=== PATIENT | female | born 1975 | race Caucasian/White ===

== ENCOUNTER 2019-07-31 07:42 | Emergency (ER) | payer OTHER, SELFPAY ==
--- NOTE | ~2019-07-31 | XR_ITS ---
XR chest 2V DATE: 07/31/2019 08:25 INDICATION: Elevated d-dimer. Shortness of breath. Back pain. TECHNIQUE: PA and lateral views COMPARISON: None FINDINGS: Normal heart size. No hilar or mediastinal enlargement. No pulmonary infiltrate or consolid ation, pleural effusion or pulmonary vascular congestion or pneumothorax. IMPRESSION: No active cardiopulmonary disease Reviewed, dictated and finalized at location A.
--- NOTE | ~2019-07-31 | CT_ITS ---
EXAMINATION: CTA chest PE protocol DATE: 07/31/2019 09:17 INDICATION: Shortness of breath, back pain. Elevated d-dimer. TECHNIQUE: Computed tomography angiography (CTA) of the chest was performed with 100 mL Omnipaque-350 intravenous contrast timed to evaluate the pulmonary arteries. Coronal maximum intensity projection 3D-reconstructions were created by the technologist. Automated exposure control and iterative reconst ruction technique were employed. Exam dose: 657.32 mGy-cm total exam DLP. COMPARISON: None. FINDINGS: There is moderate contrast enhancement of the pulmonary arteries and no evidence of pulmona ry embolism. Normal heart size. Trace pericardial fluid. No pleural effusion. No thoracic aortic aneurysm or dissection. There is mild nonspecific bilateral hilar and mediastinal lymph node prominence, including the larges t, a 14 x 22.5 mm enlarged prevascular lymph node. Mild emphysematous changes. No pulmonary infiltrate or consolidation or pulmonary mass lesion is evident. Status post cholecystectomy. IMPRESSION: No evidence of pulmonary embolism Nonspecific mediastinal and hilar lymph node prominence Reviewed, dictated and finalized at Location A. Reviewed, dictated and finalized at location A.
[2019-07-31 07:49] VITALS: BP 160/105; PULSE 120; RESP 18; TEMP 36.8; O2SAT 100
--- NOTE | 2019-07-31 08:04 | ED.URI ---
HPI - URI/Sore Throat General Chief Complaint: Upper Respiratory Infection Stated Complaint: st, fever, cold symptoms Time Seen by Provider: 07/31/19 07:48 Source: patient Mode of arrival: ambulatory Limitations: no limitations History of Present Illness HPI Narrative: 43 yo female smoker who presents for evaluation of fever and cold symptoms. Patient states starting on Thursday she developed sinus congestion, cough, and sore throat. She reports she has mild cough with sob and left upper back pain. She had a fever prior to coming to ER of 102, and she took excedrin and hydrocodone. She denies sick contacts. She has psoriatic arthritis but she denies taking immunosuppresants. MD elicited complaint: fever, cough, sore throat, rhinorrhea and nasal congestion Onset (ago): day(s) (2) Consistency: progressively worsening Associated symptoms: fever, chills, rhinorrhea, nasal congestion, sore throat, cough and shortness of breath Treatments prior to arrival: aspirin (excedrin) Related Data Home Medications Medication Instructions Recorded Confirmed atorvastatin 40 mg PO DAILY 03/20/19 03/20/19 baclofen 20 mg PO QID 03/20/19 03/20/19 citalopram 40 mg PO DAILY 03/20/19 03/20/19 estradiol 1 mg PO 3XW 03/20/19 03/20/19 furosemide 40 mg PO DAILY PRN 03/20/19 03/20/19 gabapentin 900 mg PO HS 03/20/19 03/20/19 hydrocodone-acetaminophen 1 tablet PO Q4H PRN 03/20/19 03/20/19 meloxicam 15 mg PO DAILY 03/20/19 03/20/19 quetiapine [Seroquel] 200 mg PO HS 03/20/19 03/20/19 Allergies Allergy/AdvReac Type Severity Reaction Status Date / Time doxycycline Allergy Intermediate Redness of Verified 07/31/19 07:52 Skin sumatriptan Allergy Intermediate VASCULAR Verified 07/31/19 07:52 REACTION Review of Systems Review of Systems: All systems reviewed & are unremarkable except as noted in HPI and below Constitutional: Constitutional: Reports fever(s) ENT: Reports nasal congestion and Reports sore throat Cardiovascular: Cardiovascular: Denies chest pain and Denies rapid heart rate Respiratory: Respiratory: Reports chest congestion, Reports cough and Reports dyspnea Gastrointestinal: Gastrointestinal: Denies abdominal pain and Denies nausea Musculoskeletal: Musculoskeletal: Reports back pain PMFSH Past Medical History Medical History (Updated 07/31/19 @ 10:23 by Danisha Jade MD) Depression H/O pelvic mass Psoriatic arthritis Surgical History Surgical History S/P laparoscopic surgery Social History Social History (Updated 07/31/19 @ 08:06 by Danisha Jade MD) Smoking packs per day: 1 Smoking cigarettes per day: 20.0 Smoking status: Current every day smoker Gender identity (if verbalized by the patient): Female Exam Narrative: Exam Narrative: GENERAL: Well-appearing, well-nourished, and in no acute distress. HEAD: Normocephalic, atraumatic EYES: PERRLA and EOMI, conjunctiva clear without discharge EARS: TM's clear bilaterally without erythema or dullness NOSE: Nares clear, no rhinorrhea or epistaxis NECK: Supple, without lymphadenopathy or mass RESPIRATORY: No respiratory distress, Airway patent, Respirations non-labored, Clear to auscultation without rales, rhonchi or wheeze HEART: Regular rate and rhythm. No murmur heard. Normal peripheral pulses. ABDOMEN: Soft, nontender, nondistended, normal active bowel sounds. No masses. No rebound or guarding, No organomegaly. EXTREMITIES: No edema, normal strength with full range of motion. SKIN: Warm, dry, normal color without rash NEURO: Alert and oriented x3. CN 2-12 grossly intact. No focal deficits. PSYCH: Normal mood and affect. HENMT: Ears: external ears normal and TM's normal bilaterally Mouth: Yes moist mucous membranes Throat: uvula midline and posterior oropharynx abnormal erythema Neck: Neck: no lymphadenopathy Course Reevaluation(s) Reevaluation #1: I Discussed with kena
[2019-07-31] MEDS: KETOROLAC 30 MG/ML VIAL (*BKC) IV PUSH (08:13)
[2019-07-31 08:15] LABS: Basophils Percent Auto 0.5 % (0.2-1.2); Eosinophils Absolute Auto 0.2 K/mm3 (0-0.3); Eosinophils Percent Auto 2.3 % (0-4.4); Hematocrit 43.1 % (37.0-47.0); Hemoglobin 14.2 g/dL (12.0-15.0); Immature Granulocyte Absolute 0.02 K/mm3 (0.00-0.031); Immature Granulocyte Percent A 0.3 % (0-0.5); Lymphocytes Absolute Auto 1.61 K/mm3 (0.9-3.2); Lymphocytes Percent Auto 20.9 % (18.3-44.2); Mean Corpuscular HGB Conc 32.9 g/dl (32-36); Mean Corpuscular Hemoglobin 29.3 pg (26-34); Mean Corpuscular Volume 88.9 fl (80-100); Mean Platelet Volume 11.5 fl (7.4-10.4); Monocytes Absolute Auto 0.6 K/mm3 (0.1-0.6); Monocytes Percent Auto 7.7 % (2.6-8.5); Neutrophils Absolute Auto 5.3 K/mm3 (1.3-6.7); Neutrophils Percent Auto 68.3 % (45.5-73.1); Platelet Count Result 175 k/mm3 (150-375); Red Blood Count 4.85 M/mm3 (4.2-5.4); Red Cell Distribution Width 15.1 % (11.5-14.5); White Blood Count 7.7 K/mm3 (4.5-10.0)
[2019-07-31] MEDS: LACTATED RINGERS 1,000 ML 999 ML IV CONT (08:22)
[2019-07-31 08:27] LABS: INR 0.9; Prothrombin Time 12.1 Seconds (11.1-14.7)
[2019-07-31 08:27] LABS: Lactic Acid Reflex 1.1 mmol/L (0.7-2.1)
[2019-07-31 08:29] LABS: Alanine Aminotransferase 29 U/L (4-35); Albumin Level 4.4 g/dL (3.5-5.1); Alkaline Phosphatase 63 U/L (38-126); Aspartate Amino Transferase 34 U/L (14-36); Bilirubin,Total 0.4 mg/dL (0.2-1.3); Blood Urea Nitrogen 8 mg/dL (7-17); Carbon Dioxide 28 mmol/L (22-30); Chloride 100 mmol/L (98-107); Estimated CRCL calculation 85 ml/min; Estimated Glomerular Filt Rate > 60; Glucose 116 mg/dL (65-105); Partial Thromboplastin Time 31.2 SECONDS (22.3-36.8); Potassium 4.1 mmol/L (3.4-5.0); Sodium 136 mmol/L (137-145)
[2019-07-31 08:39] LABS: Troponin I < 0.012 ng/mL (0.000-0.034)
[2019-07-31 08:55] LABS: D Dimer 1.32 ug/mL (<0.48)
[2019-07-31 10:33] VITALS: BP 120/81; PULSE 79; RESP 18; O2SAT 100
== END 2019-07-31 10:36 | disposition home or self-care (01) ==
PROVIDERS: Emergency Provider General Practice
DX: J06.9 Acute upper respiratory infection, unspecified (principal); J43.9 Emphysema, unspecified; M54.5 Low back pain; F32.9 Major depressive disorder, single episode, unspecified; L40.50 Arthropathic psoriasis, unspecified; F17.210 Nicotine dependence, cigarettes, uncomplicated
CPT/HCPCS: 36415; 71046; 71275; 80053; 83605; 84484; 85025; 85380; 85610; 85730; 87081; 87804; 87880; 96361; 96374; 99284; J1885; J7120; Q9967

== ENCOUNTER 2020-07-18 10:05 | Outpatient (CLI) | payer OTHER, SELFPAY ==
[2020-07-18 10:19] LABS: Basophils Absolute Auto 0.07 K/mm3 (0.00-0.10); Basophils Percent Auto 0.7 % (0.0-1.0); Eosinophils Absolute Auto 0.32 K/mm3 (0.02-0.50); Eosinophils Percent Auto 3.3 % (1.0-6.0); Hematocrit 40.6 % (35.0-49.0); Immature Granulocyte Absolute 0.04 K/mm3 (0.00-0.00); Immature Granulocyte Percent A 0.4 % (0.0-0.0); Lymphocytes Absolute Auto 3.68 K/mm3 (1.10-4.50); Lymphocytes Percent Auto 38.4 % (18.0-42.0); Mean Corpuscular Hemoglobin 29.5 pg (27.0-31.0); Mean Corpuscular Volume 92.1 fL (78.0-102.0); Mean Platelet Volume 10.2 fl (9.2-11.8); Monocytes Absolute Auto 0.49 K/mm3 (0.10-0.90); Monocytes Percent Auto 5.1 % (2.0-11.0); Neutrophils Percent Auto 52.1 % (50.0-70.0); Platelet Count Result 293 K/mm3 (150-420); Red Blood Count 4.41 M/mm3 (4.20-5.40); Red Cell Distribution Width 15.8 % (11.6-14.4); White Blood Count 9.6 K/mm3 (4.8-10.8)
[2020-07-18 11:01] LABS: Alanine Aminotransferase 22 U/L (14-59); Albumin Level 3.5 g/dL (3.4-5.0); Alkaline Phosphatase 73 U/L (46-116); Anion Gap 6 mmol/L (8-16); Aspartate Amino Transferase 13 U/L (15-37); Bilirubin,Total 0.3 mg/dL (0.00-1.00); Blood Urea Nitrogen 13 mg/dL (7-18); CRP 1.4 mg/dL (0.0-0.9); Calcium 8.7 mg/dL (8.5-10.1); Carbon Dioxide 29 mmol/L (21-32); Chloride 103 mmol/L (98-108); Estimated Glomerular Filt Rate > 60; Glucose 106 mg/dL (70-99); Osmolality Calculated 286 mOsm/kg (285-295); Sodium 138 mmol/L (136-145)
[2020-07-18 11:15] LABS: Erythrocyte Sedimentation Rate 23 mm/hr (0-15)
== END 2020-07-18 10:06 | disposition home or self-care (01) ==
DX: M25.50 Pain in unspecified joint (principal)
CPT/HCPCS: 36415; 80053; 85025; 85652; 86140

== ENCOUNTER 2021-06-27 11:14 | Outpatient (RCR) | payer OTHER, SELFPAY ==
[2021-06-27 11:28] LABS: Basophils Absolute Auto 0.07 K/mm3 (0.00-0.10); Basophils Percent Auto 0.7 % (0.0-1.0); Eosinophils Absolute Auto 0.24 K/mm3 (0.02-0.50); Eosinophils Percent Auto 2.3 % (1.0-6.0); Hematocrit 41.6 % (35.0-49.0); Hemoglobin 13.5 g/dL (12.0-15.0); Immature Granulocyte Absolute 0.06 K/mm3 (0.00-0.00); Immature Granulocyte Percent A 0.6 % (0.0-0.0); Lymphocytes Absolute Auto 3.34 K/mm3 (1.10-4.50); Lymphocytes Percent Auto 32.1 % (18.0-42.0); Mean Corpuscular HGB Conc 32.5 g/dL (32.0-36.0); Mean Corpuscular Hemoglobin 30.1 pg (27.0-31.0); Mean Corpuscular Volume 92.9 fL (78.0-102.0); Mean Platelet Volume 10.5 fl (9.2-11.8); Monocytes Percent Auto 4.8 % (2.0-11.0); Neutrophils Absolute Auto 6.2 K/mm3 (1.7-7.2); Neutrophils Percent Auto 59.5 % (50.0-70.0); Platelet Count Result 332 K/mm3 (150-420); Red Blood Count 4.48 M/mm3 (4.20-5.40); Red Cell Distribution Width 17.7 % (11.6-14.4); White Blood Count 10.4 K/mm3 (4.8-10.8)
[2021-06-27 11:52] LABS: Alanine Aminotransferase 84 U/L (14-59); Albumin Level 3.8 g/dL (3.4-5.0); Alkaline Phosphatase 66 U/L (46-116); Anion Gap 9 mmol/L (8-16); Aspartate Amino Transferase 31 U/L (15-37); Bilirubin,Total 0.4 mg/dL (0.00-1.00); Blood Urea Nitrogen 10 mg/dL (7-18); Carbon Dioxide 30 mmol/L (21-32); Chloride 99 mmol/L (98-108); Estimated Glomerular Filt Rate > 60; Glucose 104 mg/dL (70-99); Osmolality Calculated 285 mOsm/kg (285-295); Potassium 4.7 mmol/L (3.5-5.1); Sodium 138 mmol/L (136-145); Total Protein 7.5 g/dL (6.4-8.2)
== END 2021-09-25 23:59 | disposition home or self-care (01) ==
LOC: CHSLAB 11:14
DX: Z79.899 Other long term (current) drug therapy (principal); L28.2 Other prurigo
CPT/HCPCS: 36415; 80053; 85025

== ENCOUNTER 2021-11-21 14:04 | Outpatient (RCR) | payer OTHER, SELFPAY ==
--- NOTE | 2021-11-21 15:03 | PTOPEVAL ---
Thank you for referring Sol Camp to [facility].? The patient is scheduled to be seen for therapy? ____x/week for ___ weeks. Please review, sign, date and return this plan of care INGRID. I agree with and certify that the following plan of care is medically necessary. Referring Physician Date Admitting Provider: Attending Provider: ERYN WOLFE Referring Provider: Catalina Newman *PT Outpatient Evaluation Start: 11/21/21 14:23 Freq: Status: Active Protocol: Document 11/21/21 14:23 [facility] (Rec: 11/21/21 15:02 [facility] [id number]) Therapy Assessment Status Assessment Status Assessment Status Evaluation Outpatient Past Medical History Cardiovascular History Hx Hypercholesterolemia Yes Gastrointestinal History Hx Cholecystectomy Yes Musculoskeletal History Hx Arthritis Yes: Psoriatic Hx Back Pain Yes Hx Fibromyalgia Yes HEENT History Hx Other HEENT Disorders Yes: Nasal sx Integumentary History Hx Psoriasis Yes Hx Other Skin Disorders Yes: Hidradenitis suppurativa Reproductive History Hx Post Menopausal Yes Hx Other Reproductive Disorders Yes: D&C Psychosocial History Hx Anxiety Yes Evaluation Information Problem Diagnosis fibromyalgia, R hip impingement Subjective Information patient reports she has Query Text:As Reported By Patient/ fibromyalgia, and micro Family herniations in her neck and back, and a potential compression fracture at T11. 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 she reports she has been having pain fro years , but reports it has continued to get worse for years. she reports she is on methotrexate for blisters on the skin. she reports she has the most pain with the hip and lower back currently. she reports she has increased pain with walking and standing for 5 minutes or so only. Prior Level of Function Comments Additional Prior Level of Function prior to 6 months ago or so, Comments patient reports she was better by a little bit, but reports she still was unable to stand or walk for more than 5
--- NOTE | 2021-11-21 15:14 | PTOPEVAL ---
Thank you for referring Sol Camp to [facility].? The patient is scheduled to be seen for therapy? ____x/week for ___ weeks. Please review, sign, date and return this plan of care INGRID. I agree with and certify that the following plan of care is medically necessary. Referring Physician Date Admitting Provider: Attending Provider: ERYN WOLFE Referring Provider: Catalina Newman *PT Outpatient Evaluation Start: 11/21/21 14:23 Freq: Status: Active Protocol: Document 11/21/21 14:23 [facility] (Rec: 11/21/21 15:02 [facility] [id number]) Therapy Assessment Status Assessment Status Assessment Status Evaluation Outpatient Past Medical History Cardiovascular History Hx Hypercholesterolemia Yes Gastrointestinal History Hx Cholecystectomy Yes Musculoskeletal History Hx Arthritis Yes: Psoriatic Hx Back Pain Yes Hx Fibromyalgia Yes HEENT History Hx Other HEENT Disorders Yes: Nasal sx Integumentary History Hx Psoriasis Yes Hx Other Skin Disorders Yes: Hidradenitis suppurativa Reproductive History Hx Post Menopausal Yes Hx Other Reproductive Disorders Yes: D&C Psychosocial History Hx Anxiety Yes Evaluation Information Problem Diagnosis fibromyalgia, R hip impingement Subjective Information patient reports she has Query Text:As Reported By Patient/ fibromyalgia, and micro Family herniations in her neck and back, and a potential compression fracture at T11. 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 she reports she has been having pain fro years , but reports it has continued to get worse for years. she reports she is on methotrexate for blisters on the skin. she reports she has the most pain with the hip and lower back currently. she reports she has increased pain with walking and standing for 5 minutes or so only. Prior Level of Function Comments Additional Prior Level of Function prior to 6 months ago or so, Comments patient reports she was better by a little bit, but reports she still was unable to stand or walk for more than 5
--- NOTE | 2022-01-13 16:25 | PCPTNOTE ---
Pt. attended at total of 5 treatment sessions. She has failed to return to the clinic and will be discharged from our care. Refer to last daily note for discharge status.
== END 2021-12-06 14:26 | disposition home or self-care (01) ==
LOC: CHSPT 14:04
DX: M25.851 Other specified joint disorders, right hip (principal)
CPT/HCPCS: 97110; 97112; 97162

== ENCOUNTER 2022-01-30 09:38 | Emergency (ER) | payer OTHER, SELFPAY ==
--- NOTE | ~2022-01-30 | XR_ITS ---
EXAMINATION: XR ankle RT min 3V INDICATION: Right ankle pain, initial encounter TECHNIQUE: Three views of the right ankle are obtained. COMPARISON: None available FINDINGS: There is an acute, traumatic, closed, oblique fracture of the distal fibula extending to th e level of the tibial plafond. Alignment is essentially anatomic. There is adjacent soft tissue swell ing. No additional fracture is identified. IMPRESSION: 1. Acute fracture of the distal fibula extending to the level of the tibial plafond. Reviewed, dictated and finalized at location B. IMPRESSION: 1. Acute fracture of the distal fibula extending to the level of the tibial crystal fond.
--- NOTE | ~2022-01-30 | XR_ITS ---
EXAMINATION: XR knee RT 3V DATE: 01/30/2022 10:21 INDICATION: Right knee pain, initial encounter TECHNIQUE: Three views of the right knee were obtained. COMPARISON: None. FINDINGS: There is an acute, traumatic, closed, oblique fracture involving the medial aspect of the p roximal fibula. Alignment is anatomic. Joint spaces are normal with no erosions. There is a small kn ee joint effusion. Soft tissues are unremarkable. IMPRESSION: 1. Acute nondisplaced fracture of the proximal fibula. Reviewed, dictated and finalized at location B.
[2022-01-30 09:50] VITALS: BP 179/87; PULSE 85; RESP 14; TEMP 36.2; O2SAT 100
--- NOTE | 2022-01-30 10:01 | ED.FALL ---
HPI - Fall General Chief Complaint: Fall Stated Complaint: R LEG INJURY S/P FALL Time Seen by Provider: 01/30/22 09:41 History of Present Illness HPI Narrative: 46-year-old female presents to the emergency room today for evaluation after a fall during the night. She was on her way back from the bathroom and caught her foot in a corner and caused her to fall. She reports having significant pain and swelling in her right ankle. She also has some pain in her right knee. No numbness or tingling. She took a hydrocodone at home this morning around 5:00 AM. Related Data Home Medications Medication Instructions Recorded Confirmed atorvastatin 40 mg tablet 40 mg PO DAILY 03/20/19 03/20/19 baclofen 20 mg tablet 20 mg PO QID 03/20/19 03/20/19 citalopram 40 mg tablet 40 mg PO DAILY 03/20/19 03/20/19 estradiol 1 mg tablet 1 mg PO 3XW 03/20/19 03/20/19 furosemide 40 mg tablet 40 mg PO DAILY PRN Edema 03/20/19 03/20/19 gabapentin 300 mg capsule 900 mg PO HS 03/20/19 03/20/19 hydrocodone 10 mg-acetaminophen 1 tablet PO Q4H PRN Pain 03/20/19 03/20/19 325 mg tablet meloxicam 15 mg tablet 15 mg PO DAILY 03/20/19 03/20/19 quetiapine 200 mg tablet (Seroquel) 200 mg PO HS 03/20/19 03/20/19 Allergies Allergy/AdvReac Type Severity Reaction Status Date / Time doxycycline Allergy Intermediate Redness of Verified 01/30/22 09:55 Skin sumatriptan Allergy Intermediate VASCULAR Verified 01/30/22 09:55 REACTION Review of Systems Review of Systems: CONSTITUTIONAL: Denies fever, chills, or sweats. EYES: Denies visual changes, redness, or discharge. ENT: Denies rhinorrhea, congestion, sore throat, or otalgia. CARDIOVASCULAR: Denies chest pain, palpitations, or edema. RESPIRATORY: Denies cough or dyspnea. GASTROINTESTINAL: Denies abdominal pain, nausea, vomiting, or diarrhea. GENITOURINARY: Denies dysuria or hematuria. SKIN: Denies rash or itching. MUSCULOSKELETAL: as per HPI NEUROLOGIC: Denies headache, numbness, dizziness, or weakness. PSYCHIATRIC: Denies anxiety or depression. PMFSH Past Medical History Medical History Depression H/O pelvic mass Psoriatic arthritis Surgical History Surgical History S/P laparoscopic surgery Social History Social History Smoking packs per day: 1 Smoking cigarettes per day: 20.0 Smoking status: Current every day smoker Gender identity (if verbalized by the patient): Female Exam Narrative: GENERAL: Well-appearing, well-nourished, and in no acute distress. HEAD: Normocephalic, atraumatic. EYES: PERRLA and EOMI. NECK: Supple. No adenopathy or masses. No carotid bruits or JVD CHEST: Clear to auscultation. No respiratory distress. No wheezes rales or rhonchi HEART: Regular rate and rhythm. No murmur heard. Normal peripheral pulses. ABDOMEN: Soft, nontender, nondistended, normal active bowel sounds. EXTREMITIES: right lateral ankle with moderate swelling, bruising and tenderness, no tenderness or swelling in the right knee joint, pt reports more of an aching to lateral knee, normal ROM of right knee, limited ROM of right ankle due to pain and swelling. SKIN: Warm, dry, no rash. NEURO: No focal deficits. Alert and oriented x3. PSYCH: Normal mood and affect. Course Course Emergency Course: [address] Acevedo, Ortho, recommending short leg splint and crutches. Pt can call office this afternoon to schedule follow up. Vital Signs Vital signs: Vital Signs Temperature 36.2 C L 01/30/22 09:50 Pulse Rate 85 01/30/22 09:50 Respiratory Rate 14 01/30/22 09:50 Blood Pressure 179/87 H 01/30/22 09:50 Pulse Oximetry 100 01/30/22 09:50 Temperature 36.2 C L 01/30/22 09:50 Pulse Rate 85 01/30/22 09:50 Respiratory Rate 14 01/30/22 09:50 Blood Pressure 179/87 H 01/30/22 09:5
[2022-01-30] MEDS: HYDROcodone/acetaminophen (*CRX) 10-325 MG TABLET 1 TAB PO (10:38)
--- NOTE | 2022-01-30 12:19 | PC.NURSE ---
Short leg posterior splint applied to right lower leg. Splint assessed by Nikki Zuniga NP
[2022-01-30 12:21] VITALS: BP 145/87; PULSE 78; RESP 16; O2SAT 98
== END 2022-01-30 12:23 | disposition home or self-care (01) ==
PROVIDERS: Emergency Provider Nurse Practitioner Family
DX: S82.831A Other fracture of upper and lower end of right fibula, initial encounter for closed fracture (principal); W01.0XXA Fall on same level from slipping, tripping and stumbling without subsequent striking against object, initial encounter; F32.A Depression, unspecified; L40.50 Arthropathic psoriasis, unspecified; F17.210 Nicotine dependence, cigarettes, uncomplicated; Z79.51 Long term (current) use of inhaled steroids
CPT/HCPCS: 29515; 73562; 73610; 99284; A9270

== ENCOUNTER 2022-02-04 00:52 | Day surgery (SDC) | payer OTHER, SELFPAY ==
[2022-01-31 11:38] VITALS: BMI 38.2
--- NOTE | 2022-01-31 11:48 | PC.NURSE ---
Report to the Outpatient Waiting Room, entrance under the green pavilion located off [facility], at time 1130 on date 02/04/22. OR Time: 1330. Time changes happen often and if your time is changed the preop area will call you the afternoon before. - You and your visitor will be asked to self-screen and do not enter if you have any COVID symptoms. - Only one visitor and NO children visitors are allowed at this time. - The patient visitor is requested to leave or wait in car when not with patient due to restrictions. - A mask is required within the hospital. Patients may have clear liquids (water, carbonated beverages, clear teas, apple juice) until 3 hours prior to surgery with a maximum of 20 ounces. - No food from midnight until time of surgery Take the following medications with a SIP of water the morning of surgery: CITALOPRAM, DULOXETINE, PAIN PILL IF NEEDED Medications to discontinue per physician: N/A Date to take last dose: N/A Please no make-up, nail mozambican, hairspray, perfume, deodorant, or body powder the day of surgery. No jewelry (including any body piercings) or valuables the day of surgery, leave them at home. Please take a shower or bath the night before, or the morning of, surgery with an antibacterial soap. Wear comfortable, loose fitting clothing. - Jewelry must be removed prior to entering the operating room. Rings and piercings that are not removed may be cut off. - The hospital will not accept responsibility for valuables. - Please leave all valuables, including medications, at home the day of surgery. If you are going home after surgery, a licensed lifter/driver must drive you home. - NO public transportation without another adult. - We recommend that an adult stay with you for 24 hours following discharge. - We also recommend that you do not drive, make important decision, drink alcoholic beverages, or take any drugs that were not prescribed by your health care provider for at least 24 hours after your discharge time. Follow any additional instructions given to you from your surgeon. If you or anyone in your household have experienced Covid symptoms in the past week, please notify your surgeon or the nurse liaison at the phone number below for possible testing. Telephone instructions given to PT - MARY COHEN and asked if any additional questions and then verbalized understanding. Patient advised to call surgeon office or pre surgery nurse liaison [phone] if any additional questions.
--- NOTE | 2022-02-03 11:27 | WPDANESEPPF ---
Anes - Initial Pre Proc Eval Procedure: Operation Date: 02/04/22 13:30 Proposed Procedures p Open Reduction Internal Fixation Right Lateral Malleolus Tibia Fibula Syndesmosis - Peter Acevedo MD Date/Time: 02/03/22 11:27 Surgeon: Peter Acevedo MD Pre Op Diagnosis: right lateral malleolus fracture Patient Data Age: 46 Gender: F Height: 1.65 m Weight: 104.33 kg Allergies Allergy/AdvReac Type Severity Reaction Status Date / Time doxycycline Allergy Intermediate Redness of Verified 02/04/22 12:29 Skin sumatriptan Allergy Intermediate VASCULAR Verified 02/04/22 12:29 REACTION Home Medications Medication Instructions Recorded Confirmed Type baclofen 20 mg tablet 20 mg PO QID 03/20/19 02/04/22 History cetirizine 10 mg capsule (Zyrtec) 10 mg PO DAILY #14 caps 03/20/19 02/04/22 Rx citalopram 40 mg tablet 40 mg PO DAILY 03/20/19 02/04/22 History gabapentin 300 mg capsule 900 mg PO HS 03/20/19 02/04/22 History hydrocodone 10 mg-acetaminophen 1 tablet PO Q4H PRN Pain 03/20/19 02/04/22 History 325 mg tablet diclofenac sodium 75 mg 75 mg PO BID 01/31/22 02/04/22 History tablet,delayed release duloxetine 60 mg capsule,delayed 60 mg PO DAILY 01/31/22 02/04/22 History release methotrexate sodium 2.5 mg tablet 20 mg PO WEEKLY 01/31/22 01/31/22 History quetiapine 300 mg tablet 300 mg PO HS 02/04/22 02/04/22 History Patient hx anesthesia problems: none Family hx anesthesia problems: none Results Review: All pre-operative results and documents have been reviewed as part of the pre-operative evaluation. [facility] Past Medical History Medical History (Updated 02/03/22 @ 11:29 by Javon Panchal MD) Anxiety Chronic narcotic use COPD (chronic obstructive pulmonary disease) Current smoker Depression Depression Deviated nasal septum Emphysema/COPD Fibromyalgia H/O pelvic mass Hyperlipemia Hypertension Obesity CARLOS (obstructive sleep apnea) Psoriatic arthritis Sleep apnea Surgical History Surgical History (Updated 01/31/22 @ 09:55 by Mikayla Peter MA) H/O wisdom tooth extraction S/P laparoscopic surgery Family History Family History (Updated 01/31/22 @ 10:01 by Mikayla Peter MA) Mother Arthritis Cancer Father Cancer Arthritis Social History Social History Smoking packs per day: 1.5 Smoking cigarettes per day: 30.0 Years smoked: 29 Smoking pack-years: 43.50 Smoking status: Current every day smoker Tobacco type: cigarettes Alcohol intake: never Substance use: never Substance use type: does not use Living arrangements: with family Gender identity (if verbalized by the patient): Female Spiritual care concerns: No Anes - Eval Final PreProcedure Day of Procedure 02/03/22 11:27 Patient weight: obese Heart: regular rate and rhythm Lungs: clear to auscultation and normal air movement Airway: Mallampati scale class II Neurological: alert and oriented Last oral intake: >/= 8 hours ASA classification: III Emergent: no Anesthetic plan: proceed Anesthesia type and monitoring: general LMA Results Review: All pre-operative results and documents have been reviewed as part of the pre-operative evaluation. Informed Consent: The patient's anesthetic plan and its attendant risks and benefits were discussed with the patient/family/POA. Questions were solicited and answers provided to the satisfaction of the patient/family/POA.
[2022-02-04] VITALS (9 sets, daily range): BP systolic 140–159; BP diastolic 78–100; PULSE 74–99; RESP 14–20; TEMP 36.6; O2SAT 94–100
--- NOTE | ~2022-02-04 | XR_ITS ---
EXAMINATION: XR surgery orthopedic DATE: 02/04/2022 13:40 CDT INDICATION: ORIF RT ANKLE . TECHNIQUE: 4 fluoroscopic images of the right ankle were obtained during ORIF, right ankle performed by the surgeon. I was not present in the operating room. Fluoroscopy exposure time was 34 seconds. Cu mulative air Kerma was 1.8066 mGy. Total dose area product 0.0358 mGym2. COMPARISON: 01/30/2022 FINDINGS: Screw and plate fixation of the oblique distal right fibular fracture. IMPRESSION: Fluoroscopic documentation of right ankle ORIF. Please refer to the operative note for complete proce dural details . Reviewed, dictated and finalized at location K. IMPRESSION: Fluoroscopic documentation of right ankle ORIF. Please refer to the operative n ote for complete procedural details .
--- NOTE | 2022-02-04 09:46 | ECG_ITS ---
Measurements Intervals [place] Rate: 77 P: 41 RI: 159 QRS: -20 QRSD: 81 T: 105 QT: 297 QTc: 336 Interpretive Statements SINUS RHYTHM BORDERLINE R WAVE PROGRESSION, ANTERIOR LEADS BORDERLINE ST-T WAVE ABNORMALITY- HIGH LATERAL LEADS BORDERLINE ECG COMPARED TO ECG 03/01/2019 12:09:00 NO SIGNIFICANT CHANGES Electronically Signed On 02-04-2022 12:21:41 CDT by Pierre Bean D.O.
--- NOTE | 2022-02-04 09:58 | WPDHPUPDATE1 ---
History and Physical Update Update Date/Time: 02/04/22 09:58 History and Physical has been reviewed, including an updated exam of the patient. There are NO changes in the patient's condition. Risks, benefits, and alternatives have been discussed and questions answered. Patient agrees to proceed with procedure.
[2022-02-04] MEDS: ACETAMINOPHEN 500 MG TABLET 1000 MG PO (12:45)
[2022-02-04] MEDS: KETOROLAC 15 MG/ML VIAL (*BKC) IV PUSH (12:58)
[2022-02-04] MEDS: FAMOTIDINE 20 MG/2 ML VIAL IV PUSH (13:01)
[2022-02-04] MEDS: LACTATED RINGERS 1,000 ML 30 ML IV CONT ×2 (13:06→15:03)
[2022-02-04] MEDS: ceFAZolin 2 GM/D5W 50 ML 2 GM/50 ML BAG IVPB (13:23)
--- NOTE | 2022-02-04 13:24 | WPDANESPNB ---
Anes - Peripheral Nerve Block Date/Time: 02/04/22 13:24 I have discussed with the patient/family/POA the placement of a peripheral nerve block for post-operative pain management, including associated risks, benefits, complications, and side effects. Alternative methods of post-operative analgesia were detailed. Questions were solicited and answers provided to the satisfaction of the patient/family/POA. Time-Out: A pre-procedural Time-Out was completed immediately before starting the procedure and confirmed: Patient Identification, Site, Procedure, Patient Position and the Availability of Requisite Equipment. Clinical Indications: Acute post-operative pain management requested by the operative surgeon. Nerve Block Insertion Note Anes-nerve block: posterior fossa sciatic (20cc) right and adductor canal (10cc) right Patient position: supine Skin prep: chlorhexidine Needle: 22 gauge, stimulating, insulated echogenic needle. Needle length: 80 mm Technique: ultrasound (in plane) Injectate: bupivacaine 0.25% with epi 5 mcg/ml (30cc) Observations: tolerated well Complications: none Procedure start time:: 1315 Procedure end time:: 1320
[2022-02-04] MEDS: ONDANSETRON INJ 4 MG/2 ML VIAL IV PUSH (15:09)
[2022-02-04] MEDS: fentaNYL CITRATE INJ (*CRX) 100 MCG/2 ML VIAL 25 MCG IV PUSH ×5 (15:35→15:51)
--- NOTE | 2022-02-04 16:23 | P.OP_ITS ---
Procedure Note - Detailed Date of Procedure 02/04/22 Pre-op Diagnosis Right lateral malleolus fracture Post-op Diagnosis Same Procedure Performed ORIF right lateral malleolus fracture. Surgeon Peter Acevedo MD Aeronautical Engineering Teacher Eunice Scales PA-C Anesthesia General Indications Displaced, comminuted distal fibular fracture. Findings Long oblique fracture. Anterior comminution. Two lag screws from anterior to posterior used. Lateral anatomic plate with distal locking screws. Ankle syndesmosis intact. Description of Procedure A general anesthetic was administered. The limb was prepped and draped in the usual sterile fashion with a well-padded tourniquet high on the thigh. A bump was placed under the hip. The limb was exsanguinated and the tourniquet inflated to 300 millimeters of mercury during the procedure. A longitudinal incision was created at the distal fibula. Careful dissection was carried down to bone. Perineal nerve branches were not encountered. The fracture was carefully exposed. Callus and debris was irrigated from the wound. The fracture was brought out to length. Reduction was accomplished with the reduction forceps. A lag screw was placed from anterior to posterior. Later a 2nd lag screw was placed in the more distal comminuted fragment. The fixation plate was placed anatomically. Fixation was performed with a combination of cortical and cancellous screws. Fluoroscopy was used throughout the procedure to confirm anatomic reduction and appropriate placement of the implants. The syndesmosis was carefully assessed and found to be anatomically reduced, and stable. Tourniquet was released. Meticulous hemostasis was obtained. The wound was closed in layers with 2-0 Vicryl suture 3-0 Monocryl suture and ileen. A sterile splint with padding was applied. The patient was extubated and brought to the recovery room in stable condition. There were no complications. Implants Arthrex distal fibular anatomic plate, and screws. Estimated Blood Loss -20.0 Drains No Complications No immediate complications Condition Stable Disposition PACU [facility] Billing Surgery - Charge Forward: Surgery Billing
[2022-02-04] MEDS: oxyCODONE HCL (*CRX) 5 MG TAB IR PO (16:40)
== END 2022-02-04 17:32 | disposition home or self-care (01) ==
PROVIDERS: Visit Provider Orthopaedic Surgery
PROC: (CPT 27792; principal; 2022-02-04 13:30)
DX: S82.61XA Displaced fracture of lateral malleolus of right fibula, initial encounter for closed fracture (principal); G89.18 Other acute postprocedural pain; W01.0XXA Fall on same level from slipping, tripping and stumbling without subsequent striking against object, initial encounter; I10 Essential (primary) hypertension; J43.9 Emphysema, unspecified; E78.5 Hyperlipidemia, unspecified; L40.50 Arthropathic psoriasis, unspecified; F32.A Depression, unspecified; G47.33 Obstructive sleep apnea (adult) (pediatric); F41.9 Anxiety disorder, unspecified; F17.210 Nicotine dependence, cigarettes, uncomplicated; E66.9 Obesity, unspecified; Z68.38 Body mass index [BMI] 38.0-38.9, adult
CPT/HCPCS: 27792; 64447; 64445; 93005; 99199; A9270; C1713; J0690; J1100; J1885; J2250; J2405; J2704; J3010; J7120

== ENCOUNTER 2022-07-09 08:23 | Outpatient (CLI) | payer OTHER, SELFPAY ==
[2022-07-09 09:03] LABS: Hemoglobin A1C 6.2 % (<5.7)
[2022-07-09 09:45] LABS: Cholesterol 224 mg/dL (0-200); Folic Acid 14.6 ng/mL (8.6->20); HDL Direct 28 mg/dL (40-60); LDL Cholesterol Calculated 145 mg/dL (<130); Triglycerides 257 mg/dL (0-150); Vitamin B12 219 pg/mL (193-986)
== END 2022-07-09 08:24 | disposition home or self-care (01) ==
DX: M81.0 Age-related osteoporosis without current pathological fracture (principal)
CPT/HCPCS: 36415; 80061; 82607; 82746; 83036

== ENCOUNTER 2022-07-11 08:30 | Outpatient (CLI) | payer OTHER, SELFPAY ==
--- NOTE | ~2022-07-11 | DEXA_ITS ---
Bone Density Report Name: MARY COHEN Age: 46 Sex: Female Ethnicity: White Date of : 1975 Indication: postmenopausal; height loss; prior fracture; asthma or emphysema; Referring Provider: UNKNOWN, UNKNOWN Study: Bone densitometry was performed. Exam Date: July 11, 2022 Accession number: [id number] Bone Density: Region BMD T-score Z-score Classification AP Spine(L1, L3, L4) 1.075 0.2 0.7 Normal Femoral Neck (Left) 0.826 -0.2 0.3 Normal Total Hip (Left) 1.064 1.0 1.3 Normal Femoral Neck (Right) 0.799 -0.4 0.0 Normal Total Hip (Right) 0.997 0.5 0.8 Normal Femoral Neck Mean 0.813 -0.3 0.1 Normal Total Hip Mean 1.031 0.7 1.0 Normal World Health Organization criteria for BMD impression classify patients as: Normal (T-score at or above -1.0), Osteopenia (T-score between -1.0 and -2.5), or Osteoporosis (T-score at or below -2.5). 10-year Fracture Risk: FRAX not reported because: All T-scores for Spine Total, Hip Total, Femoral Neck at or above -1.0 Clinical Information Provided by Patient: Has had a low trauma fracture Smokes Has used the following medications: HRT (i.e. estrogen/hormone therapy), Vitamin D Has the following medical conditions: Asthma or Emphysema Patient maximum height was 66 Menopause Age: 40 No regular weight bearing exercise Does not regularly consume dairy products Drinks caffeinated beverages Onset of menses at age 13 Number of children 3 Missed period for more than 6 months in a row Impression: The patient has normal bone mass. The patient has risk factors, including: smoking, previous fracture. Discussion: BONE DENSITY IS ABOVE THE MINIMUM DESIRABLE LEVEL AT ALL SKELETAL SITES TESTED. This patient?s bone mineral density is above the minimum desirable level (T-score -1.0 or better) at all sites measured. The patient should follow a healthful lifestyle (good nutrition with adequate calcium and vitamin D, and appropriate weight-bearing exercise). Follow-Up: Consider repeating this study in 5 years or sooner if there is some new clinical indication. Reported by: Dr. Wilson Fisher on 07/11/2022 8:59:00 AM. Reviewed, dictated and finalized at location Johnny DURAN
== END 2022-07-11 08:31 | disposition home or self-care (01) ==
DX: M81.0 Age-related osteoporosis without current pathological fracture (principal)
CPT/HCPCS: 77080

== ENCOUNTER 2023-10-02 14:33 | Outpatient (CLI) | payer OTHER, SELFPAY ==
[2023-10-02 14:58] LABS: Basophils Absolute Auto 0.05 K/mm3 (0.00-0.10); Basophils Percent Auto 0.5 % (0.0-1.0); Eosinophils Absolute Auto 0.18 K/mm3 (0.02-0.50); Eosinophils Percent Auto 1.9 % (1.0-6.0); Hematocrit 42.6 % (35.0-49.0); Hemoglobin 13.8 g/dL (12.0-15.0); Immature Granulocyte Absolute 0.03 K/mm3 (0.00-0.00); Immature Granulocyte Percent A 0.3 % (0.0-0.0); Lymphocytes Absolute Auto 3.63 K/mm3 (1.10-4.50); Lymphocytes Percent Auto 38.2 % (18.0-42.0); Mean Corpuscular HGB Conc 32.4 g/dL (32-36); Mean Corpuscular Hemoglobin 30.2 pg (27.0-31.0); Mean Corpuscular Volume 93.2 fL (78.0-102.0); Mean Platelet Volume 11.1 fl (9.2-11.8); Monocytes Absolute Auto 0.55 K/mm3 (0.10-0.90); Monocytes Percent Auto 5.8 % (2.0-11.0); Neutrophils Absolute Auto 5.06 K/mm3 (1.70-7.20); Neutrophils Percent Auto 53.3 % (50.0-70.0); Platelet Count Result 287 K/mm3 (150-420); Red Blood Count 4.57 M/mm3 (4.20-5.40); Red Cell Distribution Width 14.1 % (11.6-14.4); White Blood Count 9.5 K/mm3 (4.8-10.8)
[2023-10-02 15:46] LABS: Alanine Aminotransferase 23 U/L (14-59); Albumin Level 3.7 g/dL (3.4-5.0); Alkaline Phosphatase 45 U/L (46-116); Anion Gap 10 mmol/L (4-12); Aspartate Amino Transferase 17 U/L (15-37); Bilirubin,Total 0.4 mg/dL (0.00-1.00); Blood Urea Nitrogen 20 mg/dL (7-18); Calcium 9.8 mg/dL (8.5-10.1); Carbon Dioxide 27 mmol/L (21-32); Chloride 100 mmol/L (98-108); Estimated Glomerular Filt Rate 55; Glucose 106 mg/dL (70-99); Osmolality Calculated 286 mOsm/kg (285-295); Potassium 4.6 mmol/L (3.5-5.1); Sodium 137 mmol/L (136-145); Total Protein 7.4 g/dL (6.4-8.2)
== END 2023-10-02 14:34 | disposition home or self-care (01) ==
LOC: CHSLAB 14:43
DX: Z79.899 Other long term (current) drug therapy (principal)
CPT/HCPCS: 36415; 80053; 85025

== ENCOUNTER 2023-11-04 08:20 | Outpatient (CLI) | payer OTHER, SELFPAY ==
[2023-11-04 08:40] LABS: Hematocrit 40.5 % (35.0-49.0); Hemoglobin 13.6 g/dL (12.0-15.0); Mean Corpuscular HGB Conc 33.6 g/dL (32-36); Mean Corpuscular Hemoglobin 30.8 pg (27.0-31.0); Mean Corpuscular Volume 91.6 fL (78.0-102.0); Mean Platelet Volume 10.7 fl (9.2-11.8); Platelet Count Result 287 K/mm3 (150-420); Red Blood Count 4.42 M/mm3 (4.20-5.40); Red Cell Distribution Width 13.8 % (11.6-14.4); White Blood Count 15.2 K/mm3 (4.8-10.8)
[2023-11-04 09:02] LABS: Alanine Aminotransferase 14 U/L (14-59); Albumin Level 3.2 g/dL (3.4-5.0); Alkaline Phosphatase 51 U/L (46-116); Anion Gap 11 mmol/L (4-12); Aspartate Amino Transferase < 10 U/L (15-37); Bilirubin,Total 0.2 mg/dL (0.00-1.00); Blood Urea Nitrogen 12 mg/dL (7-18); Calcium 8.6 mg/dL (8.5-10.1); Carbon Dioxide 27 mmol/L (21-32); Chloride 100 mmol/L (98-108); Estimated Glomerular Filt Rate 58; Glucose 96 mg/dL (70-99); Osmolality Calculated 285 mOsm/kg (285-295); Potassium 4.2 mmol/L (3.5-5.1); Sodium 138 mmol/L (136-145); Total Protein 6.6 g/dL (6.4-8.2)
== END 2023-11-04 08:21 | disposition home or self-care (01) ==
LOC: CHSLAB 08:29
DX: Z79.899 Other long term (current) drug therapy (principal)
CPT/HCPCS: 36415; 80053; 85027

== ENCOUNTER 2024-06-20 18:12 | Emergency (ER) | payer OTHER, SELFPAY ==
[2024-06-20 18:12] VITALS: BP 107/59; PULSE 95; RESP 20; TEMP 36.4; O2SAT 100
--- OUTSIDE RECORDS SUMMARY | 2024-06-20 18:56 | XMS_ITS | Clinical Summary ---
Author Organization [facility] Address [address] [place] [address]. [place], [place] [id number] [place] [id number] Care Team Providers Care Burrito Maker Name Role Phone Mal Babb MD Primary Care Provider [phone] Social History Tobacco Use Types Packs/Day Years Used Date Smoking Tobacco: Never Assessed Comments Unknown Sex and Gender Information Value Date Recorded Sex Assigned at Not on file Legal Sex Female 10:56 PM CDT Gender Identity Not on file Sexual Orientation Not on file Last Filed Vital Signs Vital Sign Reading Time Taken Comments Blood Pressure 120/81 03/07/2015 2:39 PM CDT Pulse - - Temperature - - Respiratory Rate - - Oxygen Saturation - - Inhaled Oxygen Concentration - - Weight 91.2 kg (201 lb) 03/07/2015 2:39 PM CDT Height 167.6 cm (5' 6 ) 03/07/2015 2:39 PM CDT Body Mass Index 32.44 03/07/2015 2:39 PM CDT Plan of Treatment Upcoming Encounters Date Type Department Care Team (Late st Contact Info) Description 10/20/2024 11:00 AM CDT Office Visit [facility] - [address] [place] [phone] Spencer Jorge MD [address] [place] [id number] Health Maintenance Due Date Last Done Comments Cervical Cancer Screening Pa p Smear (Age 30 to 64) Every 3 Years 1975 Colorectal Cancer Screening Colonoscopy (10 Years) 1976 Annual Physical 11/17/1979 Hepatitis C 1994 DTaP, Tdap and Td Vaccines ( 1 - Tdap) 11/17/1995 Hepatitis B Vaccines (1 of 3 - 19+ 3-dose series) 11/17/1995 Cervical Cancer Screening Pa p with HPV Testing (Age 30 to 64) Every 5 Years 2006 Cervical Cancer Screening with HPV 2006 Mammogram Screening 2016 COVID-19 Vaccine ( - 2023-2 5 season) 2024 Influenza Adult (#1) 2024 Meningococcal B Vaccine Aged Out No l onger eligible based on patient's age to complete this topic Meningococcal Vaccine Aged Out No rox papito eligible based on patient's age to complete this topic Pneumococcal Vaccine: Pediat rics (0 to 5 Years) and At-Risk Patients (6 to 64 Years) Aged Out No longer eligible b ased on patient's age to complete this topic RSV Immunizations Under 20 Months Aged Out No longer eligible based on patient's age to complete this topic Insurance Care Teams Burrito Maker Relationship Specialty [place] [id number] [address] [facility] [address] [place] [address] PCP - General OPTOMETRIC AIDE 06/25/20
--- OUTSIDE RECORDS SUMMARY | 2024-06-20 18:56 | XMS_ITS | Patient Health Summary ---
Author Organization [facility] Address [address] [facility] [place] [address] Care Team Providers Care Crate Repairer Name Role Phone Kuldeep Stanley MD Primary Care Provider [phone] Note from [facility],non-owned Affiliates and Associated Physician Practices is amultiple site organization consisting of ambulatory clinics and hospital sitesin [place], [place]. This disclosure is being madepursuant to the Care Everywhere program and may not contain all information available regarding this patient. Last updated 18.[facility] Allergies * Sumatriptan(Other) Medications * Be aware that medications may not be up to date on this document. Alwaysverify current medications with the patient. * citalopram (CELEXA) 40 MG tablet(Started 06/08/2014) * HYDROcodone-acetaminophen (NORCO) 5-325 MG tablet * BACLOFEN PO * traZODone (DESYREL) 50 MG tablet Take 50 mg by mouth at bedtime * meloxicam (MOBIC) 15 MG tablet Take 15 mg by mouth once daily * gabapentin (NEURONTIN) 300 MG capsule Take 300 mg by mouth 4 times daily Active Problems Problem Noted Date Diagnosed Date Otalgia 03/01/2015 Hypertrophy of nasal turbinates 10/29/2011 Deviated nasal septum 10/29/2011 Other specified disorders of Eustachian tube, unspecified ear 08/15/2011 Headache 08/15/2011 Social History Tobacco Use Types Packs/Day Years Used Date Smoking Tobacco: Every Day Smokeless Tobacco: Never Sex and Gender Information Value Date Recorded Sex Assigned at Not on file Gender Identity Not on file Sexual Orientation Not on file Last Filed Vital Signs Vital Sign Reading Time Taken Comments Blood Pressure 102/78 07/17/2017 2:53 PM [facility]NER Pulse 69 07/17/2017 2:53 PM [facility] Temperature 36.8 ??C (98.2 ??F) 07/17/2017 2:53 PM CS T Respiratory Rate 16 07/17/2017 2:53 PM [facility]NER Oxygen Saturation 98% 07/17/2017 2:53 PM [facility]NER Inhaled Oxygen Concentration - - Weight 98.9 kg (218 lb) 07/17/2017 2:53 PM [facility] Height 165.1 cm (5' 5 ) 07/17/2017 2:53 PM [facility] Body Mass Index 36.28 07/17/2017 2:53 PM [facility] Procedures * INFLUENZA A+B - POINT OF CARE (AMB)(Performed 07/17/2017) Performed for Upper respiratory tract infection, unspecified type * XR KNEE BILAT 2VW OR LESS(Performed 06/25/2017) Performed for Inflammatory polyarthritis (HCC), Chronic fatigue fibromyalgia syndrome, Dorsalgia * XR PELVIS W BILAT HIP 2VW(Performed 06/25/2017) Performed for Inflammatory polyarthritis (HCC), Chronic fatigue fibromyalgia syndrome, Dorsalgia, Insomnia due to medical condition Results * INFLUENZA A+B - POINT OF CARE (AMB) (07/17/2017) Influenza A Antigen Rapid Negative Negative Influenza B Antigen Rapid Negative Negative Influenza Internal Control present NEGATIVE - POSITIVE Influenza Lot Number [id number] Influenza Expiration Date Other NASOPHARYNGEAL SWAB / Unknown 07/17/2017 Diego Amador FOUNDRY WORKER APPRENTICE-STEAM SETTER LAB - POINT OF CARE ORDERABLES * XR KNEE BILAT ONE OR TWO VIEWS (06/25/2017 1:50 PM [facility]) Anatomical Region Laterality Modality Lower Extremity Radiographic Prabha ging 06/25/2017 2:58 PM [facility] Impressions 06/25/2017 3:17 PM [facility] NO ACUTE OSSEOUS ABNORMALITY. Edited by Selma Marcelo on 06/25/2017 3:03 PM Narrative 06/25/2017 3:17 PM [facility] BILATERAL KNEES 2 VIEWS EACH INDICATION: Bilateral knee pain, initial encounter. FINDINGS: Two views of each knee without prior show no evidence of acute fracture, subluxation or dislocation. Procedure Note Ariel Pope MD - 06/25/2017 BILATERAL KNEES 2 VIEWS EACH INDICATION: Bilateral knee pain, initial encounter. FINDINGS: Two views of each knee without prior show no evidence of acute fracture, subluxation or dislocation. IMPRESSION NO ACUTE OSSEOUS ABNORMALITY. Edited by Selma Marcelo on 06/25/2017 3:03 PM Regis Richards MD DIAGNOSTIC IMAGING O RDERABLES * XR HIPS BILATERAL 2 VW W AP PELVIS (06/25/2017 1:50 PM [facility]) Anatomical Region Laterality Modality Pelvis, Lower Extremity Radiogra phic Imaging 06/25/2017 2:47 PM [facility] Impressions 06/25/2017 2:58 PM [facility] NO ACUTE OSSEOUS ABNORMALITY. Edited by Selma Marcelo on 06/25/2017 2:48 PM Narrative 06/25/2017 2:58 PM [facility]NER PELVIS AP VIEW AND BILATERAL HIPS 2 VIEWS EACH INDICATION: Pelvic pain and bilateral hip pain. FINDINGS: Frontal view of the pelvis and two views each of the hips show no acute fracture, subluxation or dislocation. If symptoms persist, follow-up exam may be of further use to exclude an occult process. Procedure Note Ariel Pope MD - 06/25/2017 PELVIS AP VIEW AND BILATERAL HIPS 2 VIEWS EACH INDICATION: Pelvic pain and bilateral hip pain. FINDINGS: Frontal view of the pelvis and two views each of the hips show no acute fracture, subluxation or dislocation. If symptoms persist, follow-up exam may be of further use to exclude an occult process. IMPRESSION NO ACUTE OSSEOUS ABNORMALITY. Edited by Selma Marcelo on 06/25/2017 2:48 PM Regis Richards MD DIAGNOSTIC IMAGING O RDERABLES Care Teams Crate Repairer Relationship Specialty Start Date End Date Kuldeep Stanley MD [address] [place] [address] [place] [phone] PCP - General 03/26/19
--- OUTSIDE RECORDS SUMMARY | 2024-06-20 18:56 | XMS_ITS | Clinical Summary ---
Author Organization [facility] Address [address] [place] [address] Care Team Providers Care Activity Director Name Role Phone Kuldeep Stanley MD Primary Care Provider Source Comments [facility],non-owned Affiliates and Associated Physician Practices is amultiple site organization consisting of ambulatory clinics and hospital sitesin [place], [place], [place] and [place]. This disclosure is being madepursuant to the Care Everywhere program and may not contain all information available regarding this patient. Last updated 18.[facility] Allergies Active Allergy Reactions Criticality Noted Date Comments Sumatriptan Other 07/17/2017 Vascular reaction Medications * Be aware that medications may not be up to date on this document. Alwaysverify current medications with the patient. Medication Sig Dispensed Refills Start Date End Date Status citalopram (CELEXA) 40 MG tablet 06/08/2014 Active HYDROcodone-acetaminop hen (NORCO) 5-325 MG tablet Active BACLOFEN PO Active traZODone (DESYREL) 50 MG tablet Take 50 mg by mouth at bedtime Active meloxicam (MOBIC) 15 MG tablet Take 15 mg by mouth once daily Active gabapentin (NEURONTIN) 300 MG capsule Take 300 mg by mouth 4 times daily Active Active Problems Problem Noted Date Diagnosed Date [...] Comments Blood Pressure 102/78 07/17/2017 2:53 PM INSTRUCTIONAL SUPPORT ASSISTANT Pulse 69 07/17/2017 2:53 PM INSTRUCTIONAL SUPPORT ASSISTANT Temperature 36.8 ??C (98.2 ??F) 07/17/2017 2:53 PM CS T Respiratory Rate 16 07/17/2017 2:53 PM INSTRUCTIONAL SUPPORT ASSISTANT Oxygen Saturation 98% 07/17/2017 2:53 PM INSTRUCTIONAL SUPPORT ASSISTANT Inhaled Oxygen Concentration - - Weight 98.9 kg (218 lb) 07/17/2017 2:53 PM INSTRUCTIONAL SUPPORT ASSISTANT Height 165.1 cm (5' 5 ) 07/17/2017 2:53 PM INSTRUCTIONAL SUPPORT ASSISTANT Body Mass Index 36.28 07/17/2017 2:53 PM INSTRUCTIONAL SUPPORT ASSISTANT Plan of Treatment Health Maintenance Due Date Last Done Comments COLOGUARD (AGES 45-75) - COL ON CA SCREENING 1976 COLON MONITORING 1976 COLONOSCOPY - COLON CA SCREENING 1976 CT COLONOGRAPHY - COLON CA SCREENING 1976 Colorectal Cancer Screening 1976 FIT - COLON CA SCREENING 1976 FLEX SIG - COLON CA SCREENING 1976 LIPID TESTING 1976 MAMMOGRAM 1976 PAP SMEAR 1976 HIV SCREENING 11/17/1991 HEPATITIS C SCREENING 11/12/1994 DTAP/TDAP/TD VACCINES (1 - Tdap) 11/17/1995 HEPATITIS B VACCINE (1 of 3 - 19+ 3-dose series) 11/17/1995 PNEUMOCOCCAL VACCINE (1 of 2 - PCV) 11/17/1995 SCREENING FOR DIABETES 07/17/2017 COVID-19 VACCINE ( - 2023-2 5 season) 2024 INFLUENZA VACCINE (#1) 2024 DEPRESSION SCREENING 05/18/2024 ZOSTER VACCINE (1 of 2) 2026 HIB VACCINE Aged Out No longer eligi ble based on patient's age to complete this topic HPV VACCINE Aged Out No longer eligi ble based on patient's age to complete this topic MENINGOCOCCAL (Group B) VACCINE Aged Out No longer eligible based on patient's age to complete this topic MENINGOCOCCAL VACCINE Aged Out No rox papito eligible based on patient's age to complete this topic Care Teams Activity Director Relationship Specialty Start Date End Date Kuldeep Stanley MD [address] [place] [address] [place] [id number] PCP - General 03/26/19
--- OUTSIDE RECORDS SUMMARY | 2024-06-20 18:56 | XMS_ITS | Referral Summary ---
Author Organization [facility] Address [address] [place] [address] Care Team Providers Care Healthcare Consultant Name Role Phone Kuldeep Stanley MD Primary Care Provider [phone] Source Comments [facility] Affiliates and Associated Physician Practices is amultiple site organization consisting of ambulatory clinics and hospital sitesin [place], [place], [place] and [place]. This disclosure is being madepursuant to the Care Everywhere program and may not contain all information available regarding this patient. Last updated 18.[facility] Allergies Active Allergy Reactions Criticality Noted Date [...] Comments Blood Pressure 102/78 07/17/2017 2:53 PM ECOMMERCE MARKETING SPECIALIST Pulse 69 07/17/2017 2:53 PM ECOMMERCE MARKETING SPECIALIST Temperature 36.8 ??C (98.2 ??F) 07/17/2017 2:53 PM CS T Respiratory Rate 16 07/17/2017 2:53 PM ECOMMERCE MARKETING SPECIALIST Oxygen Saturation 98% 07/17/2017 2:53 PM ECOMMERCE MARKETING SPECIALIST Inhaled Oxygen Concentration - - Weight 98.9 kg (218 lb) 07/17/2017 2:53 PM ECOMMERCE MARKETING SPECIALIST Height 165.1 cm (5' 5 ) 07/17/2017 2:53 PM ECOMMERCE MARKETING SPECIALIST Body Mass Index 36.28 07/17/2017 2:53 PM ECOMMERCE MARKETING SPECIALIST Plan of Treatment Not on file Care Teams Healthcare Consultant Relationship Specialty Start Date End Date Kuldeep Stanley MD [address] [place] [address] [place] [address] PCP - General 03/26/19
--- OUTSIDE RECORDS SUMMARY | 2024-06-20 18:56 | XMS_ITS | Clinical Summary ---
Author Organization [facility] Address [address] [place] [address] Care Team Providers Care Police Captain Name Role Phone Mal Babb MD Primary Care Provider Allergies No known active allergies Medications medroxyPROGESTERon e (PROVERA) 5 mg tablet 0 04/19/2014 Active citalopram (CELEXA) 40 mg tablet 9 06/08/2014 Active NIFEdipine (PROCARDIA XL) 90 mg Extended Release 24 hour tablet 2 06/08/2014 Active ranitidine (ZANTAC) 150 mg tablet 7 06/08/2014 Active fluticasone (FLONASE) 50 mcg/spray [place], Suspension 0 05/20/2014 Active Active Problems Problem Noted Date Diagnosed Date Vitamin B12 deficiency anemia 06/21/2014 Iron deficiency anemia 06/12/2014 Social History Tobacco Use Types Packs/Day Years Used Date Smoking Tobacco: Every Day Cigarettes 1 21 Smokeless Tobacco: Never Alcohol Use Standard Drinks/Week Comments Yes 0 (1 standard drink = 0.6 oz pur e alcohol) Comments Unknown Sex and Gender Information Value Date Recorded Sex Assigned at Not on file Legal Sex Female 6:08 AM PIPELINE MAINTENANCE SUPERVISOR Gender Identity Not on file Sexual Orientation Not on file Last Filed Vital Signs Vital Sign Reading Time Taken Comments Blood Pressure 138/90 06/21/2014 11:49 AM PIPELINE MAINTENANCE SUPERVISOR Pulse 60 06/21/2014 11:49 AM PIPELINE MAINTENANCE SUPERVISOR Temperature 36.7 ??C (98.1 ??F) 06/21/2014 11:[address] Respiratory Rate 20 06/21/2014 11:49 AM PIPELINE MAINTENANCE SUPERVISOR Oxygen Saturation - - Inhaled Oxygen Concentration - - Weight 80.8 kg (178 lb 3.2 oz) 06/21/2014 11:49 AM PIPELINE MAINTENANCE SUPERVISOR Height 165.1 cm (5' 5 ) 06/21/2014 11:49 AM PIPELINE MAINTENANCE SUPERVISOR Body Mass Index 29.65 06/21/2014 11:49 AM PIPELINE MAINTENANCE SUPERVISOR Plan of Treatment Health Maintenance Due Date Last Done Comments PNEUMOCOCCAL VACCINE 0-64 YEARS (1 of 2 - PCV) 983 DTAP/TDAP/TD VACCINES (1 - Tdap) 11/17/1995 HEPATITIS B VACCINES (1 of 3 - 19+ 3-dose series) 06/1995 CERVICAL CANCER SCREENING 2006 BREAST CANCER SCREENING 2016 COLORECTAL SCREENING 2021 Colorectal Cancer Screening 2021 FIT-DNA Q 3 years 2021 FIT/FOBT Q 1 year 2021 Flex Sig/CT Colonography Q 5 years 2021 INFLUENZA VACCINE (#1) 2023 Insurance Care Teams Police Captain Relationship Specialty [place] [address] [place] [address] PCP - General Internal Medicine 06/09/17
--- OUTSIDE RECORDS SUMMARY | 2024-06-20 18:56 | XMS_ITS | Encounter Summary ---
Author Organization [facility] Address [address] [place] [address]. [place], [place] [address] [place] [address] Care Team Providers Care Prism Inspector Name Role Phone Mal Babb MD Primary Care Provider [phone] Encounter Details Date Type Department Care Team (Late Contact Info) Description 10/23/2018 Abstract [facility] CONVERSION [address] [place] [address] , Generic Conversion, Social History Tobacco Use Types Packs/Day Years Used Date Smoking Tobacco: Never Assessed Comments Unknown Sex and Gender Information Value Date Recorded Sex Assigned at Not on file Legal Sex Female 10:56 PM CDT Gender Identity Not on file Sexual Orientation Not on file documented as of this encounter Plan of Treatment Upcoming Encounters Date Type Department Care Team (Late Contact Info) Description 10/20/2024 11:00 AM CDT Office Visit [facility] - [address] [place] [id number] Spencer Jorge MD [address] [place] [address] documented as of this encounter Visit Diagnoses Not on filedocumented in this encounter Care Teams Prism Inspector Relationship Specialty [place] [address] [facility] [address] [place] [address] PCP - General ASSISTANT CURATOR 06/25/20 documented as of this encounter
[2024-06-20 19:23] LABS: Influenza A QL RT-PCR Negative (Negative); Influenza B QL RT-PCR Negative (Negative); RSV RNA, RT-PCR Negative (Negative); SARS-CoV-2 RNA PCR Negative (Negative)
--- NOTE | 2024-06-20 19:23 | ED_ITS ---
HPI - Nausea/Vomiting/Diarrhea General Chief complaint: Nausea/Vomiting/Diarrhea Stated complaint: cough, fever, vomiting and diarrhea Time Seen by Provider: 06/20/24 18:31 Source: patient Mode of arrival: ambulatory Limitations: no limitations History of Present Illness HPI Narrative: Patient is a 48-year-old female with nausea vomiting and diarrhea for 2 days. She feels not well and ill feeling. MD elicited complaint: nausea, vomiting and diarrhea Pertinent past history: anorexia and other ( Negative correlating with diagnosis) Onset (ago): day(s) (2) Description of vomiting: watery Description of diarrhea: mucus and watery Associated nausea: Yes Associated abdominal pain: No Location of pain: none Radiation: does not radiate Pain consistency: other ( no pain) Severity: moderate Pain scale (0-10): 0 Quality: other ( no pain) Exacerbating factors: eating Relieving factors: medication Context: sick contacts Associated symptoms: myalgias, cough, fever/chills, headaches, loss of appetite, malaise, nausea/vomiting, dysuria and weakness Treatment prior to arrival: other OTC medicine Related Data Home Medications ?Medication ?Instructions ?Recorded ?Confirmed ?Last Taken ?Type baclofen 20 mg tablet 20 mg PO QID 03/20/19 06/10/23 02/03/22 History citalopram 40 mg tablet 40 mg PO DAILY 03/20/19 06/10/23 02/04/22 History gabapentin 300 mg capsule 900 mg PO HS 03/20/19 06/10/23 02/03/22 History hydrocodone 10 mg-acetaminophen 1 tablet PO Q4H PRN Pain 03/20/19 06/10/23 02/04/22 History 325 mg tablet diclofenac sodium 75 mg 75 mg PO BID 01/31/22 06/10/23 02/03/22 History tablet,delayed release duloxetine 60 mg capsule,delayed 60 mg PO DAILY 01/31/22 06/10/23 02/03/22 History release methotrexate sodium 2.5 mg tablet 20 mg PO WEEKLY 01/31/22 06/10/23 Unknown History quetiapine 300 mg tablet 300 mg PO HS 02/04/22 06/10/23 02/03/22 History folic acid 1 mg tablet 1 mg PO DAILY 04/21/22 06/10/23 Unknown History triamcinolone acetonide 0.1 % 1 applic topical BID 04/21/22 06/10/23 Unknown History topical ointment ixszbfp-nujojeszhqcmh-ympwytkq 250 1 tablet PO Q4-6H PRN 06/10/23 06/10/23 Unknown History mg-250 mg-65 mg tablet (Excedrin Extra Strength) cholecalciferol (vitamin D3) 50 50 mcg PO DAILY 06/10/23 06/10/23 Unknown History mcg (2,000 unit) capsule mecobalamin (vitamin B12) 1,000 1,000 mcg PO DAILY 06/10/23 06/10/23 Unknown History mcg chewable tablet spironolactone 50 mg tablet 100 mg PO DAILY 06/10/23 06/10/23 Unknown History Allergies Allergy/AdvReac Type Severity Reaction Status Date / Time doxycycline Allergy Intermediate Redness of Verified 06/20/24 18:25 Skin sumatriptan Allergy Intermediate VASCULAR Verified 06/20/24 18:25 REACTION Review of Systems 2 Review of Systems: All systems reviewed & are unremarkable except as noted in HPI and below Constitutional: Constitutional: Reports no additional constitutional complaints Eyes: Eyes: Reports no additional eye complaints ENT: Reports system reviewed and no additional complaints, except as documented Cardiovascular: Cardiovascular: Reports no additional cardiovascular complaints Respiratory: Respiratory: Reports no additional respiratory complaints Gastrointestinal: Gastrointestinal: Reports no additional gastrointestinal complaints Genitourinary: Genitourinary: Reports no additional female genitourinary complaints Musculoskeletal: Musculoskeletal: Reports no additional musculoskeletal complaints Integumentary/Breasts: Skin/Breast: Reports system reviewed and no additional complaints, except as docu Neurologic: Reports system reviewed and no additional complaints, except as documented Psychiatric: Psychiatric: Reports no additional psychiatric complaints Endocrine: Endocrine: Reports no additional endocrine complaints Hematologic/Lymphatic: Hematologic/Lymphatic: Reports no additional hematologic/lymphatic complaints Allergic/Immunologic: Allergic/Immunologic: Reports no additional allergic/immunologic complaints PMFSH Past Medical History Medical History Obesity Chronic narcotic use Depression Anxiety CARLOS (obstructive sleep apnea) Emphysema/COPD COPD (chronic obstructive pulmonary disease) Hypertension Sleep apnea Hyperlipemia Deviated nasal septum Fibromyalgia Current smoker Psoriatic arthritis H/O pelvic mass Depression Surgical History Surgical History History of open reduction and internal fixation (ORIF) procedure (~02/04/22) Right ORIF Lateral malleolus and Tib Fib syndesmosis H/O wisdom tooth extraction S/P laparoscopic surgery Family History Family History Mother Arthritis Cancer Father Cancer Arthritis Social History Social History Smoking packs per day: 1.5 Smoking cigarettes per day: 30.0 Years smoked: 29 Smoking pack-years: 43.50 Smoking status: Current every day smoker Tobacco type: cigarettes Alcohol intake: never Substance use: never Substance use type: does not use Do You Feel Safe in your Home?: Yes Lack of Transportation: YES Lack of Food: Never True Current Housing: Decline to Answer Concerned About Future Housing: No Difficulty Paying Gas/Electric Bills: YES Difficulty Paying for Meds: YES Currently Unemployed: YES Education: High School Diploma/GED Difficulty w/ Childcare or Family Care: No Living arrangements: with family Gender identity (if verbalized by the patient): Female Spiritual care concerns: No Exam 2 Const: General: ill appearing Nutritional Appearance: well nourished O rientation/consciousness: patient oriented x3 Limitations: no limitations HENMT: Head: normal to inspection Ears: external ears normal F karime/Nose/Sinus: Normal external nose present Eyes: Conjunctivae: conjunctivae normal Cornea: corneas normal Pupils: E qual, round and reactive pupils present Neck: Neck: normal visual inspection Chest: Chest palpation & inspection: normal inspection of the chest Resp: Effort & Inspection: normal respiratory effort and not labored A uscultation: clear to auscultation bilaterally and no crackles Cardio: Rate: regular rate Rhythm: regular rhythm Heart sounds: no murmurs GI: Inspection: non-distended GI Palp: Yes Soft to palpation and No Tenderness to palpation present (GI) Auscultation: normal bowel sounds : General: Yes bladder normal to palpation Back/Spine/Pelvis: Back: no CVA tenderness Skin: General skin exam: normal color Rashes: no rashes Wounds: no wounds Neuro: General: patient oriented x3 Cranial nerves: Yes Nystagmus not present Speech: normal speech Gait exam (Neuro): Normal gait present Extrem: General: normal to inspection Psych: Mental Status: mental status grossly normal Affect: normal affect Attitude: cooperative Course Vital Signs Vital signs: Vital Signs Temperature 36.4 C 06/20/24 18:12 Pulse Rate 95 06/20/24 18:12 Respiratory Rate 20 06/20/24 18:12 Blood Pressure 107/59 L 06/20/24 18:12 Pulse Oximetry 100 06/20/24 18:12 Oxygen Delivery Room Air 06/20/24 18:12 Temperature 37.1 C 06/20/24 20:33 Pulse Rate 73 06/20/24 20:33 Respiratory Rate 20 06/20/24 20:33 Blood Pressure 113/60 06/20/24 20:33 Pulse Oximetry 97 06/20/24 20:33 Oxygen Delivery Room Air 06/20/24 20:33 MDM - Nausea/Vomiting/Diarrhea MDM Narrative Medical decision making narrative: patient is a 48-year-old female with flu-like symptoms. She has nausea vomiting and diarrhea as well. We will do a COVID panel swab. Viral panel was negative. We will proceed with further workup. Lab Data Attestation: I reviewed the patient's lab results. 06/20/24 19:41 06/20/24 19:41 Labs: Lab Results 06/20/24 06/20/24 Range/Units 19:17 19:41 WBC 6.3 (4.8-10.8) K/mm3 RBC 4.47 (4.20-5.40) M/mm3 Hgb 13.3 (12.0-15.0) g/dL Hct 39.9 (35.0-49.0) % MCV 89.3 (78.0-102.0) fL MCH 29.8 (27.0-31.0) pg MCHC 33.3 (32-36) g/dL RDW 14.6 H (11.6-14.4) % Plt Count 219 (150-420) K/mm3 MPV 10.6 (9.2-11.8) fl Immature Gran % (Auto) 0.3 H (0.0-0.0) % Neut % (Auto) 77.9 H (50.0-70.0) % Lymph % (Auto) 13.9 L (18.0-42.0) % [place] % (Auto) 5.2 (2.0-11.0) % Eos % (Auto) 2.4 (1.0-6.0) % Baso % (Auto) 0.3 (0.0-1.0) % Lymph # (Auto) 0.88 L (1.10-4.50) K/mm3 [place] # (Auto) 0.33 (0.10-0.90) K/mm3 Eos # (Auto) 0.15 (0.02-0.50) K/mm3 Baso # (Auto) 0.02 (0.00-0.10) K/mm3 Abs Immat Gran (auto) 0.02 H (0.00-0.00) K/mm3 Absolute Neuts (auto) 4.91 (1.70-7.20) K/mm3 Absolute Nucleated RBC 0.00 (0.00-0.00) K/mm3 Nucleated RBC % 0.0 (0-0.0) % Sodium 132 L (136-145) mmol/L Potassium 3.6 (3.5-5.1) mmol/L Chloride 96 L (98-108) mmol/L Carbon Dioxide 25 (21-32) mmol/L Anion Gap 11 (4-12) mmol/L BUN 15 (7-18) mg/dL Creatinine 1.03 H (0.55-1.02) mg/dL Estim Creat Clear Calc 61 ml/min Estimated GFR 57 L (59 - ) Glucose 109 H (70-99) mg/dL Calculated Osmolality 275 L (285-295) mOsm/kg Lactic Acid 1.2 (0.4-2.0) mmol/L Calcium 7.9 L (8.5-10.1) mg/dL Magnesium 1.5 L (1.8-2.4) mg/dL Total Bilirubin 0.7 (0.00-1.00) mg/dL AST 13 L (15-37) U/L ALT 15 (14-59) U/L Alkaline Phosphatase 48 (46-116) U/L Total Protein 6.8 (6.4-8.2) g/dL Albumin 3.1 L (3.4-5.0) g/dL Urine Color Yellow (Yellow) Urine Appearance Clear (Clear) Urine pH 6.0 (5.0-8.0) Ur Specific [place] 1.025 H (1.010-1.020) Urine Protein 2+ H (Negative) Urine Glucose (UA) Negative (Negative) Urine Ketones Trace H (Negative) Ur Blood (Man) 2+ H (Negative) Urine Nitrate Positive H (Negative) Urine Bilirubin 1+ H (Negative) Urine Urobilinogen 1.0 (0.2-1.0) mg/dL Ur Leukocyte Esterase Trace H (Negative) Urine RBC 3-5 H (0-2) /hpf Urine WBC 0-3 (0-3) /hpf Ur Squamous Epith Cells Rare (Few) /hpf Urine Bacteria 1+ H (None) /hpf Influenza A (RT-PCR) Negative (Negative) Influenza B (RT-PCR) Negative (Negative) RSV (RT-PCR) Negative (Negative) SARS-CoV-2 RNA (RT-PCR) Negative (Negative) Discharge Plan Discharge Clinical Impression: Gastroenteritis, Hypomagnesemia UTI (urinary tract infection) Qualifiers: Urinary tract infection type: acute cystitis Hematuria presence: without hematuria Qualified Code(s): N30.00 - Acute cystitis without hematuria Patient Disposition: Home, Self-Care Condition: Stable Instructions: Antibiotic Form, Urinary Tract Infection in Women (DC), Gastroenteritis (ED) Patient Language: Setswana Prescriptions: New ondansetron 4 mg tablet,disintegrating 4 mg PO Q6H PRN (Reason: nausea and vomiting) Qty: 20 0RF cephalexin 500 mg capsule 500 mg PO BID 7 Days Qty: 14 0RF No Action folic acid 1 mg tablet 1 mg PO DAILY triamcinolone acetonide 0.1 % ointment 1 applic topical BID spironolactone 50 mg tablet 100 mg PO DAILY cholecalciferol (vitamin D3) 50 mcg (2,000 unit) capsule 50 mcg PO DAILY mecobalamin (vitamin B12) 1,000 mcg tablet,chewable 1,000 mcg PO DAILY Excedrin Extra Strength 250-250-65 mg tablet 1 tablet PO Q4-6H PRN diclofenac sodium 75 mg tablet,delayed release (DR/EC) 75 mg PO BID citalopram 40 mg Tablet 40 mg PO DAILY hydrocodone-acetaminophen 10-325 mg Tablet 1 tablet PO Q4H PRN (Reason: Pain) baclofen 20 mg Tablet 20 mg PO QID gabapentin 300 mg Capsule 900 mg PO HS Zyrtec 10 mg capsule 10 mg PO DAILY Qty: 14 0RF methotrexate sodium 2.5 mg tablet 20 mg PO WEEKLY Patient Comments: PT TAKES ON THURSDAY - HASN'T TAKEN IN A MONTH duloxetine 60 mg capsule,delayed release(DR/EC) 60 mg PO DAILY quetiapine 300 mg tablet 300 mg PO HS Follow-up/Referrals: Skinny,Mal [Other] Time of Disposition: 21:51
[2024-06-20 19:27] VITALS: BP 94/78; PULSE 108; RESP 22; O2SAT 98
[2024-06-20 19:28] LABS: Add Urine Microscopic? YES; Appearance Urine Clear (Clear); Bilirubin Urine 1+ (Negative); Blood Urine 2+ (Negative); Color Urine Yellow (Yellow); Glucose Urine UA Negative (Negative); Ketones Urine Trace (Negative); Leukocyte Esterase Ur Trace (Negative); Nitrate Urine Positive (Negative); Protein Urine 2+ (Negative); Specific Grav Ur 1.025 (1.010-1.020)
[2024-06-20 19:38] LABS: Bacteria Urine 1+ /hpf; Squamous Epithelial Cell Urine Rare /hpf (Few); WBC Urine 0-3 /hpf (0-3)
[2024-06-20 19:44] LABS: Basophils Absolute Auto 0.02 K/mm3 (0.00-0.10); Basophils Percent Auto 0.3 % (0.0-1.0); Eosinophils Absolute Auto 0.15 K/mm3 (0.02-0.50); Eosinophils Percent Auto 2.4 % (1.0-6.0); Hematocrit 39.9 % (35.0-49.0); Hemoglobin 13.3 g/dL (12.0-15.0); Immature Granulocyte Absolute 0.02 K/mm3 (0.00-0.00); Immature Granulocyte Percent A 0.3 % (0.0-0.0); Lymphocytes Absolute Auto 0.88 K/mm3 (1.10-4.50); Lymphocytes Percent Auto 13.9 % (18.0-42.0); Mean Corpuscular HGB Conc 33.3 g/dL (32-36); Mean Corpuscular Hemoglobin 29.8 pg (27.0-31.0); Mean Corpuscular Volume 89.3 fL (78.0-102.0); Mean Platelet Volume 10.6 fl (9.2-11.8); Monocytes Absolute Auto 0.33 K/mm3 (0.10-0.90); Monocytes Percent Auto 5.2 % (2.0-11.0); Neutrophils Absolute Auto 4.91 K/mm3 (1.70-7.20); Neutrophils Percent Auto 77.9 % (50.0-70.0); Platelet Count Result 219 K/mm3 (150-420); Red Blood Count 4.47 M/mm3 (4.20-5.40); Red Cell Distribution Width 14.6 % (11.6-14.4); White Blood Count 6.3 K/mm3 (4.8-10.8)
[2024-06-20] MEDS: ONDANSETRON INJ 4 MG/2 ML VIAL IV PUSH (19:47)
[2024-06-20] MEDS: HYDROmorphone HCL INJ (*CRX) 2 MG/ML VIAL 0.5 MG IV PUSH (19:47)
[2024-06-20] MEDS: SODIUM CHLORIDE 0.9% IV 1,000 ML 999 ML IV CONT (19:47)
[2024-06-20 20:02] LABS: Alanine Aminotransferase 15 U/L (14-59); Albumin Level 3.1 g/dL (3.4-5.0); Alkaline Phosphatase 48 U/L (46-116); Anion Gap 11 mmol/L (4-12); Aspartate Amino Transferase 13 U/L (15-37); Bilirubin,Total 0.7 mg/dL (0.00-1.00); Blood Urea Nitrogen 15 mg/dL (7-18); Calcium 7.9 mg/dL (8.5-10.1); Carbon Dioxide 25 mmol/L (21-32); Chloride 96 mmol/L (98-108); Estimated CRCL calculation 61 ml/min; Estimated Glomerular Filt Rate 57; Glucose 109 mg/dL (70-99); Magnesium 1.5 mg/dL (1.8-2.4); Osmolality Calculated 275 mOsm/kg (285-295); Potassium 3.6 mmol/L (3.5-5.1); Sodium 132 mmol/L (136-145); Total Protein 6.8 g/dL (6.4-8.2)
[2024-06-20 20:07] LABS: Lactic Acid Reflex 1.2 mmol/L (0.4-2.0)
[2024-06-20] MEDS: MAGNESIUM SULF 2 GM/WATER 50ML 2 GM/50 ML BAG IVPB (20:27)
[2024-06-20 20:33] VITALS: BP 113/60; PULSE 73; RESP 20; TEMP 37.1; O2SAT 97
[2024-06-20] MEDS: CEPHALEXIN 500 MG CAPSULE PO (21:39)
[2024-06-20 22:03] VITALS: BP 95/64; PULSE 72; RESP 18; TEMP 37.6; O2SAT 97
== END 2024-06-20 22:07 | disposition home or self-care (01) ==
PROVIDERS: Emergency Provider Emergency Medicine
DX: K52.9 Noninfective gastroenteritis and colitis, unspecified (principal); E83.42 Hypomagnesemia; N30.00 Acute cystitis without hematuria; J43.9 Emphysema, unspecified; I10 Essential (primary) hypertension; F17.210 Nicotine dependence, cigarettes, uncomplicated; Z20.822 Contact with and (suspected) exposure to COVID-19
CPT/HCPCS: 36415; 80053; 81001; 83605; 83735; 85025; 87637; 96361; 96365; 96375; 99284; A9270; J1171; J2405; J3475; J7030

== ENCOUNTER 2024-10-24 12:30 | Outpatient (CLI) | payer OTHER, SELFPAY ==
--- NOTE | ~2024-10-24 | XR_ITS ---
XR hip RT 2V w AP pelvis Ordering provider: Peter Acevedo MD History: . M16.11 - Unilateral primary osteoarthritis, right hip . Comparison: None. FINDINGS: BONES: No acute fracture or dislocation. HIP JOINT SPACES: Severe osteoarthritic changes of the right hip. Avascular necrosis is highly sugges tive in the femoral head. SACROILIAC JOINT SPACES/LUMBAR SPINE: The sacroiliac joint spaces are normal. Mild degenerative whaley es of the visualized lower lumbar spine. PUBIC SYMPHYSIS: Normal. SOFT TISSUES: Normal. IMPRESSION: No acute osseous abnormality pelvis and right hip. Severe osteoarthritic changes of the right hip. Highly suggestive of avascular necrosis in the femoral head. Reviewed, dictated and finalized at location A.
--- OUTSIDE RECORDS SUMMARY | 2024-10-24 13:44 | XMS_ITS | Clinical Summary ---
Author Organization [facility] [employer] Address [address] [address] Care Team Providers Care Belt Picker Name Role Phone Kuldeep Stanley MD Primary Care Provider [phone] Source Comments [facility],non-owned Affiliates and Associated Physician Practices is amultiple site organization consisting of ambulatory clinics and hospital sitesin [place], [place], [place] and [place]. This disclosure is being madepursuant to the Care Everywhere program and may not contain all information available regarding this patient. Last updated 18.[facility] [employer] Allergies Active Allergy Reactions Criticality Noted Date Comments Sumatriptan Other 07/17/2017 Vascular reaction Medications * Be aware that medications may not be up to date on this document. Alwaysverify current medications with the patient. citalopram (CELEXA) 40 MG tablet 06/08/2014 Active HYDROcodone-karime taminophen (NORCO) 5-325 MG tablet Active BACLOFEN PO [...] Smoking Tobacco: Every Day Smokeless Tobacco: Never Comments Unknown Sex and Gender Information Value Date Recorded Sex Assigned at Not on file Legal Sex Female 7:00 PM CHEMISTRY SPECIALIST Gender Identity Not on file Sexual Orientation Not on file Last Filed Vital Signs Vital Sign Reading Time Taken Comments Blood Pressure 102/78 07/17/2017 2:53 PM CHEMISTRY SPECIALIST Pulse 69 07/17/2017 2:53 PM CHEMISTRY SPECIALIST Temperature 36.8 C (98.2 F) 07/17/2017 2:53 PM CHEMISTRY SPECIALIST Respiratory Rate 16 07/17/2017 2:53 PM CHEMISTRY SPECIALIST Oxygen Saturation 98% 07/17/2017 2:53 PM CHEMISTRY SPECIALIST Inhaled Oxygen Concentration - - Weight 98.9 kg (218 lb) 07/17/2017 2:53 PM CHEMISTRY SPECIALIST Height 165.1 cm (5' 5) 07/17/2017 2:53 PM CHEMISTRY SPECIALIST Body Mass Index 36.28 07/17/2017 2:53 PM CHEMISTRY SPECIALIST Plan of Treatment Health Maintenance Due Date Last Done Comments COLOGUARD (AGES 45-75) - COL ON CA SCREENING 1976 COLON MONITORING 1976 COLONOSCOPY - COLON CA SCREENING 1976 CT COLONOGRAPHY - COLON CA SCREENING 1976 Colorectal Cancer Screening 1976 FIT - COLON CA SCREENING 1976 FLEX SIG - COLON CA SCREENING 1976 LIPID TESTING 1976 MAMMOGRAM 1976 HIV SCREENING 11/17/1991 HEPATITIS C SCREENING 11/12/1994 DTAP/TDAP/TD VACCINES (1 - Tdap) 11/17/1995 HEPATITIS B VACCINE (1 of 3 - 19+ 3-dose series) 11/17/1995 PNEUMOCOCCAL VACCINE (1 of 2 - PCV) 11/17/1995 SCREENING FOR DIABETES 07/17/2017 COVID-19 VACCINE (1 - 2023-2 5 season) 2024 DEPRESSION SCREENING 05/18/2024 ZOSTER VACCINE (1 of 2) 2026 INFLUENZA VACCINE Completed 02/18/2024 HIB VACCINE Aged Out No longer eligi ble based on patient's age to complete this topic HPV VACCINE Aged Out No longer eligi ble based on patient's age to complete this topic MENINGOCOCCAL (Group B) VACC INE SHARED DECISION-MAKING Aged Out No longer eligibl e based on patient's age to complete this topic MENINGOCOCCAL GROUPS A/C/Y/W VACCINE Aged Out No longer eligible b ased on patient's age to complete this topic Insurance ANTH Care Teams Belt Picker Relationship Specialty Start Date End Date Kuldeep Stanley MD [address] [place] [address] [place] [address] PCP - General 03/26/19
--- OUTSIDE RECORDS SUMMARY | 2024-10-24 13:44 | XMS_ITS | Clinical Summary ---
Author Organization [facility] Administrative Offices Address [address] [place] [address] Care Team Providers Care Clinical Support Associate Name Role Phone Mal Babb MD Primary Care Provider [phone] Allergies No known active allergies Medications medroxyPROGESTERon e (PROVERA) 5 mg tablet 0 04/19/2014 Active citalopram (CELEXA) 40 mg tablet 9 06/08/2014 Active NIFEdipine (PROCARDIA XL) 90 mg Extended Release 24 hour tablet 2 06/08/2014 Active ranitidine (ZANTAC) 150 mg tablet 7 06/08/2014 Active fluticasone (FLONASE) 50 mcg/spray [place], Suspension 0 05/20/2014 Active Active Problems Problem [...] on file Legal Sex Female 6:08 AM CHEMICAL WEIGHER Gender Identity Not on file Sexual Orientation Not on file Last Filed Vital Signs Vital Sign Reading Time Taken Comments Blood Pressure 138/90 06/21/2014 11:49 AM CHEMICAL WEIGHER Pulse 60 06/21/2014 11:49 AM CHEMICAL WEIGHER Temperature 36.7 C (98.1 F) 06/21/2014 11:49 AM CHEMICAL WEIGHER Respiratory Rate 20 06/21/2014 11:49 AM CHEMICAL WEIGHER Oxygen Saturation - - Inhaled Oxygen Concentration - - Weight 80.8 kg (178 lb 3.2 oz) 06/21/2014 11:49 AM CHEMICAL WEIGHER Height 165.1 cm (5' 5) 06/21/2014 11:49 AM CHEMICAL WEIGHER Body Mass Index 29.65 06/21/2014 11:49 AM CHEMICAL WEIGHER Plan of Treatment Health Maintenance Due Date Last Done Comments DTAP/TDAP/TD VACCINES (1 - Tdap) 11/17/1995 HEPATITIS B VACCINES (1 of 3 - 19+ 3-dose series) 06/1995 HPV/Cotest (21-29) 1997 CERVICAL CANCER SCREENING 2006 HPV/Cotest (30-65) 2006 PAP SMEAR 2006 BREAST CANCER SCREENING 2016 COLORECTAL SCREENING 2021 Colorectal Cancer Screening 2021 FIT-DNA Q 3 years 2021 FIT/FOBT Q 1 year 2021 Flex Sig/CT Colonography Q 5 years 2021 INFLUENZA VACCINE (#1) 2023 Insurance [employer] BLUE ACCESS/TRUE BLUE PPO Care Teams Clinical Support Associate Relationship Specialty [place] [id number] [place] [address] PCP - General Internal Medicine 06/09/17
--- OUTSIDE RECORDS SUMMARY | 2024-10-24 13:44 | XMS_ITS | Continuity of Care Document ---
Author Organization [facility] Address [address] [place] [address] Phone Care Team Providers Care Complaint Adjuster Name Role Phone Galen Garcia MD Unavailable [...] Copied on Encounter OFFICE/OUTPAT IENT VISIT EST [facility], [address], [place], [address], [place] tel:[phone] [facility] Frequent fallsCervicalg iaBilateral low back pain without sciaticaSpondy losis of thoracic region without myelopathy or radiculopathy 8 Jose Aaron. [address] [place] [address], [id number] . tel:[phone] Specialist : Salvador Valle, [address], [place], [address] . tel:[phone] erring Provider: Galen Garcia, [address] [place] [address], [id number] . tel:[phone] [facility], [address] [place] [address], [id number], tel:[phone] [facility] Body mass index (BMI) 37.0-37.9, adultCervicalg iaLumbosacral radiculopathy at L3 8 Jose Aaron. [address] [place] [address], [id number] . tel:[phone] Specialist : Salvador Valle, [address], [place], [address] . tel:[phone] [facility], [address] [place] [address], [address], tel:[phone] [facility] Spondylosis of thoracic region without myelopathy or radiculopathyB ilateral low back pain without sciaticaPain in thoracic spine 7 Jose Aaron. [address] [place] [address], [id number] . tel:[phone] Specialist : Salvador Valle, [address], [place], [address] . tel:[phone] OFFICE/OUTPAT IENT VISIT EST [facility], [address] [place] [address], [id number], tel:[phone] [facility] Bilateral low back pain without sciaticaSpondy losis of lumbosacral region without myelopathy or radiculopathyS pondylosis of thoracic region without myelopathy or radiculopathy 7 Jose Aaron. [address] [place], [place], [id number] . tel:[phone] Specialist : Salvador Valle, [address] [place] [address] [address], [place], [address] . tel:[phone] OFFICE CONSULTATION [facility], [address] [place] [address], [id number] [place] [address] tel:[phone] [facility] Bilateral low back pain without sciaticaSpondy losis of thoracic region without myelopathy or radiculopathyS pondylosis of lumbosacral region without myelopathy or radiculopathyB kaila mass index (BMI) 37.0-37.9, adult Sep-0 7 Jose Aaron. [address] [place], [place], [id number] . tel:[phone] Referring Provider: Salvador Valle, [address], [place], [address] . tel:[phone] Family History Family Member Type Diagnosis Age At Onset Father Problem (finding) hypertension Father Problem (finding) Father Problem (finding) hypertension Father Problem (finding) Payers Payer name Insurance type Covered green party ID Authorkedara thao(s) Blue Access PPO [id number] [id number] Social History Type Description Quantity Date Captured [...] 06/02/2017 ordered Referral Referred To: Odin Woodruff [address] [place] [address]
[address] [place], [place], [phone] Ordered: Referrals: Odin Woodruff -Rheumatology Evaluate and [...]
== END 2024-10-24 12:31 | disposition home or self-care (01) ==
LOC: CHSIMG 12:32
PROVIDERS: Visit Provider Orthopaedic Surgery
DX: M16.11 Unilateral primary osteoarthritis, right hip (principal)
CPT/HCPCS: 73502

== ENCOUNTER 2025-04-30 07:31 | Emergency (ER) | payer OTHER, SELFPAY ==
--- OUTSIDE RECORDS SUMMARY | 2017-06-05 05:00 | XMS_ITS | Continuity of Care Document ---
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 Role Phone Galen Garcia MD Unavailable Unavailable Allergies, Adverse Reactions, Alerts Substance Reaction Status Criticality No Known Allergies Active No Inform ation Medications Medication Instructions Dosage Effective Dates (start - stop) Status Comments Valium 10 mg tablet take 1-2 tablet by oral route 1 to 2 hours prior to procedure; may take remaining PRN - Active citalopram 40 mg tablet take 1 tablet by oral route every day 40 MG - Active baclofen 20 mg tablet take 1 tablet by oral route 4 times every day 20 MG - Active hydrocodone 10 mg-acetaminophen 325 mg tablet take 1 tablet by oral route every 4 - 6 hours as needed for pain 1.00 tablet - Active gabapentin 300 mg capsule take 1 capsule by oral route 4 times every day 300 MG - Active Vitamin D2 50,000 unit capsule take 1 capsule by oral route every week - Active alpha lipoic acid 600 mg capsule 1 CAPSULE DAILY - Active folic acid 1 mg tablet take 1 tablet by oral route every day 1 MG - Active ranitidine 150 mg capsule take 1 capsule by oral route 2 times every day - Active Procedures Procedure Date OFFICE/OUTPATIENT VISIT EST OFFICE/OUTPATIENT VISIT EST OFFICE CONSULTATION Advance Directives Directive Yes / No Effective Date File Name No Information Encounters Encounter Description Practice Location Reason(s) For Visit Diagnoses Date Provider Providers Copied on Encounter OFFICE/OUTPAT IENT VISIT EST [facility], [address], [place], [address], [place] tel:[phone] [facility] Frequent fallsCervicalg iaBilateral low back pain without sciaticaSpondy losis of thoracic region without myelopathy or radiculopathy 8 Jose Aaron. [address] [place] [address], [id number] . tel:[phone] Specialist : Salvador Valle, [address], [place], [address] . tel:[phone] erring Provider: Galen Garcia, [address] [place] [address], [id number] . tel:[phone] [facility], [address] [place] [address], [id number], tel:[phone] [facility] Body mass index (BMI) 37.0-37.9, adultCervicalg iaLumbosacral radiculopathy at L3 8 Jose Aaron. [address] [place] [address], [id number] . tel:[phone] Specialist : Salvador Valle, [address], [place], [address] . tel:[phone] [facility], [address] [place] [address], [id number], tel:[phone] [facility] Spondylosis of thoracic region without myelopathy or radiculopathyB ilateral low back pain without sciaticaPain in thoracic spine 7 Jose Aaron. [address] [place] [address], [id number] . tel:[phone] Specialist : Salvador Valle, [address], [place], [address] . tel:[phone] OFFICE/OUTPAT IENT VISIT EST [facility], [address] [place] [address], [id number], tel:[phone] [facility] Bilateral low back pain without sciaticaSpondy losis of lumbosacral region without myelopathy or radiculopathyS pondylosis of thoracic region without myelopathy or radiculopathy 7 Jose Aaron. [address] [place], [place], [id number] . tel:[phone] Specialist : Salvador Valle, [address] [place] [address] [address], [place], [address] . tel:[phone] OFFICE CONSULTATION [facility], [address] [place] [address], [id number] [place] [address] tel:[phone] [facility] Bilateral low back pain without sciaticaSpondy losis of thoracic region without myelopathy or radiculopathyS pondylosis of lumbosacral region without myelopathy or radiculopathyB kaila mass index (BMI) 37.0-37.9, adult Sep-0 7 Jose Aaron. [address] [place], [place], [id number] . tel:[phone] Referring Provider: Salvador Valle, [address], [place], [address] . tel:[phone] Family History Family Member Type Diagnosis Age At Onset Father Problem (finding) hypertension Father Problem (finding) Father Problem (finding) hypertension Father Problem (finding) Payers Payer name Insurance type Covered democrat ID Authorkedara thao(s) Blue Access PPO E2 OT [id number] Social History Type Description Quantity Date Captured Comments Alcohol Use Details Unknown Caffeine Use Details Unknown Tobacco Use Status Smoking Status No Information Sex Female Chief Complaint And Reason For Visit No Information Reason For Referral Reason For Referral No Information Plan Of Treatment Date Type Action Status Goal Smoking cessation education completed Goal Tobacco cessation counseling completed Goal Smoking cessation education completed Goal Tobacco cessation counseling completed Referral Ordered: MRI BRN BRN STEM C-MATRL Appointment date/timeframe: 06/12/2017 ordered Referral Ordered: Odin Woodruff -Rheumatology (related to Lumbosacral radiculopathy at L3) ordered Referral Ordered: MRI SPI CANAL&CNTS LMBR C-MATRL Appointment date/timeframe: 06/02/2017 ordered Referral Ordered: MRI SPI CANAL&CNTS CRV C-MATRL Appointment date/timeframe: 06/02/2017 ordered Referral Referred To: Odin Woodruff [address] [place] [address]
[address] [place], [place], [phone] Ordered: Referrals: Odin Woodruff -Rheumatology Evaluate and treat ordered Referral Ordered: DESTROY CERV/THOR FACET JNT Appointment date/timeframe: 05/07/2017 ordered Nutrition Recommendation Nutrition / feed ing management completed Nutrition Recommendation Nutrition / feed ing management completed History Of Present Illness Encounter Date Complaint History Of Prese nt Illness No Information Functional Status Date Functional Assessmen t No Information Instructions Date Instruction Additional Infor mation Activity as tolerated. Related t o Cervicalgia Avoid prolonged bed rest. Relate d to Cervicalgia Activity as tolerated. Related t o Lumbosacral radiculopathy at L3 Take medication as directed. Rel ated to Lumbosacral radiculopathy at L3 Apply ice and/or heat as tolerat ed Related to Lumbosacral radiculopathy at L3 Giving encouragement to exercise Related to Body mass index (BMI) 37.0-37.9, adult Giving encouragement to exercise Related to Body mass index (BMI) 37.0-37.9, adult Assessments Type Assessment Date assessment Frequent falls assessment Cervicalgia assessment Bilateral low back pain without sciatica assessment Spondylosis of thora cic region without myelopathy or radiculopathy Patient Care Teams Name Effective Dates (start - stop) Status Members No Information
[2025-04-30] VITALS (13 sets, daily range): BP systolic 160–180; BP diastolic 83–100; PULSE 75–89; RESP 15–18; TEMP 36.7; O2SAT 97–100
--- NOTE | ~2025-04-30 | CT_ITS ---
EXAMINATION: CT abdomen pelvis w con DATE: 04/30/2025 09:06 INDICATION: Right upper quadrant abdominal pain. Vomiting. TECHNIQUE: Computed tomography (CT) of the abdomen and pelvis was performed with 100 mL Omnipaque 350 intravenous contrast. Automated exposure control and iterative reconstruction technique were employed. The dose-length product was 427.09 mGy-cm. COMPARISON: None. FINDINGS: The visualized portions of the lung bases demonstrate mild atelectasis. No pleural effusion. The heart size is normal. No pericardial effusion. The liver is normal. There are changes of cholecystectomy. The spleen, pancreas, adrenal glands, and kidneys are normal. There are no dilated loops of bowel. The appendix is normal. There are no pathologically enlarged lymph nodes. There is no free intraperitoneal fluid. There is severe lower lumbar spondylosis. There is chronic anterior wedging of multiple thoracic vertebral bodies. There is severe right hip osteoarthritis and mild left hip osteoa rthritis. IMPRESSION: 1. No specific etiology for the patient's symptoms. Reviewed, dictated and finalized at location E. ICE CONTROL OPERATOR
--- NOTE | ~2025-04-30 | XR_ITS ---
Examination: XR chest 1V portable Clinical History: Chest pain Comparison: None Technique: Portable AP Findings: Heart size normal. Lungs clear. No acute bony abnormality. IMPRESSION: 1. No acute cardiopulmonary findings given portable technique. Reviewed, dictated and finalized at location R. ISHER PLASTICOATER
--- NOTE | 2025-04-30 07:32 | ED.ABDPAIN ---
HPI - Abdominal Pain General Chief Complaint: Abdominal Pain Stated Complaint: abdominal pain Source: patient Mode of arrival: ambulatory Limitations: no limitations History of Present Illness HPI narrative: 49-year-old female, smoker with dyslipidemia, arthritis, psoriatic arthritis, status post cholecystectomy, presents to the ED with -- 2 day history of right upper quadrant abdominal pain. The pain had been intermittent. Since last night the pain has increased in intensity. No radiation of the pain. No exacerbating or relieving factors. No fever or chills. The patient has nausea without any vomiting or diarrhea. She had cholecystectomy done more than 10 years ago. -- Short-lived episodes of upper substernal chest pain/ left chest wall pain which is unprovoked and lasts less than a minute. No radiation of the pain. No vomiting. No lightheadedness /dizziness. No diaphoresis. MD elicited complaint: abdominal pain Onset (ago): day(s) ( Two days) Pain Consistency: intermittent Location: RUQ Severity: moderate Pain scale (0-10): 6 Quality: aching Radiation: none Migration to: no migration Exacerbating factors: nothing Relieving factors: nothing Associated symptoms: nausea Related Data Patient : No Home Medications ?Medication ?Instructions ?Recorded ?Confirmed ?Last Taken ?Type hydrocodone 10 mg-acetaminophen 1 tablet PO Q4H PRN Pain 03/20/19 10/26/24 02/04/22 History 325 mg tablet Held on 02/04/22. Instructions: Resume on 02/18/22. Hold while taking oxycodone triamcinolone acetonide 0.1 % 1 applic topical BID 04/21/22 10/26/24 Unknown History topical ointment bptadel-twhxkqyefixxz-nzcwxqub 250 1 tablet PO Q4-6H PRN 06/10/23 06/10/23 Unknown History mg-250 mg-65 mg tablet (Excedrin Extra Strength) baclofen 20 mg tablet 20 mg PO BID 10/26/24 10/26/24 Unknown History gabapentin 300 mg capsule 300 mg PO HS 10/26/24 10/26/24 Unknown History quetiapine 300 mg tablet 200 mg PO HS 10/26/24 10/26/24 Unknown History Allergies Allergy/AdvReac Type Severity Reaction Status Date / Time doxycycline Allergy Intermediate Redness of Verified 04/30/25 07:48 Skin sumatriptan Allergy Intermediate VASCULAR Verified 04/30/25 07:48 REACTION Review of Systems Review of Systems: All systems reviewed & are unremarkable except as noted in HPI and below Constitutional: Constitutional: Reports as per HPI and Reports no additional constitutional complaints Eyes: Eyes: Reports as per HPI and Reports no additional eye complaints ENT: Reports system reviewed and no additional complaints, except as documented and Reports as per HPI Cardiovascular: Cardiovascular: Reports as per HPI, Reports no additional cardiovascular complaints and Reports chest pain Comments: 4-5 episodes of chest pain lasting less than a minute with spontaneous resolution which started this morning. Respiratory: Respiratory: Reports as per HPI and Reports no additional respiratory complaints Gastrointestinal: Gastrointestinal: Reports as per HPI, Reports no additional gastrointestinal complaints, Reports abdominal pain and Reports nausea Comments: Right upper quadrant abdominal pain Genitourinary: Genitourinary: Reports no additional female genitourinary complaints Musculoskeletal: Musculoskeletal: Reports no additional musculoskeletal complaints, Reports as per HPI, Reports myalgias and Reports arthralgias Comments: history of fibromyalgia Integumentary/Breasts: Skin/Breast: Reports system reviewed and no additional complaints, except as docu and Reports as per HPI Neurologic: Reports system reviewed and no additional complaints, except as documented and Reports as per HPI Psychiatric: Psychiatric: Reports no additional psychiatric complaints and Reports as per HPI Endocrine: Endocrine: Reports no additional endocrine complaints and Reports as per HPI Hematologic/Lymphatic: Hematologic/Lymphatic: Reports no additional hematologic/lymphatic complaints and Reports as per HPI Allergic/Immunologic: Allergic/Immunologic: Reports no additional allergic/immunologic complaints and Reports as per HPI PMFSH Past Medical History Medical History Obesity Chronic narcotic use Depression Anxiety CARLOS (obstructive sleep apnea) Emphysema/COPD COPD (chronic obstructive pulmonary disease) Hypertension Sleep apnea Hyperlipemia Deviated nasal septum Fibromyalgia Current smoker Psoriatic arthritis H/O pelvic mass Depression Surgical History Surgical History History of open reduction and internal fixation (ORIF) procedure (~02/04/22) Right ORIF Lateral malleolus and Tib Fib syndesmosis H/O wisdom tooth extraction S/P laparoscopic surgery Family History Family History Mother Arthritis Cancer Father Cancer Arthritis Social History Social History Smoking packs per day: 1.5 Smoking cigarettes per day: 30.0 Years smoked: 29 Smoking pack-years: 43.50 Smoking status: Current every day smoker Tobacco type: cigarettes Alcohol intake: never Substance use: never Substance use type: does not use Lack of Transportation: YES Lack of Food: Never True Current Housing: Decline to Answer Concerned About Future Housing: No Difficulty Paying Gas/Electric Bills: YES Difficulty Paying for Meds: YES Currently Unemployed: YES Education: High School Diploma/GED Difficulty w/ Childcare or Family Care: No Living arrangements: with family Gender identity (if verbalized by the patient): Female Spiritual care concerns: No Exam Narrative: hypertension with a blood pressure Const: General: no acute distress Orientation/consciousness: patient oriented x3 Limitations: no limitations HENMT: Head: normal to inspection Ears: external ears normal Face/Nose/Sinus: Normal external nose present Face and sinus: normal facial exam Mouth: Yes Normal oral and palatal mucosa present Throat: posterior oropharynx normal Eyes: Conjunctivae: conjunctivae normal Pupils: Equal, round and reactive pupils present EOM: EOMs intact bilaterally Direct Ophthalmoscopy: no photophobia Neck: Neck: normal visual inspection, no lymphadenopathy and no meningeal signs Chest: Chest palpation & inspection: normal inspection of the chest Resp: Effort & Inspection: normal respiratory effort Auscultation: clear to auscultation bilaterally Cardio: Rate: regular rate Rhythm: regular rhythm GI: GI Palp: Yes Soft to palpation Auscultation: normal bowel sounds Other: right upper quadrant tenderness. Hepatomegaly : General: Yes no CVA tenderness Back/Spine/Pelvis: Back: no CVA tenderness Skin: General skin exam: normal color Rashes: no rashes Wounds: no wounds Neuro: General: patient oriented x3, moves all extremities, no meningeal signs, no focal motor deficits and CN's II-XI intact bilaterally Cranial nerves: Yes Nystagmus not present Speech: normal speech Gait exam (Neuro): Normal gait present Extrem: General: normal to inspection Psych: Mental Status: mental status grossly normal Affect: normal affect Attitude: cooperative Course Course Emergency Course: 49-year-old female presents with -- right upper quadrant abdominal pain. History of cholecystectomy. Tenderness of the right upper quadrant. No peritoneal signs. patient was noted to have a white count of 11.8. patient complains of restlessness and abdominal discomfort. Patient received Compazine with improvement of nausea. Will give her Dilaudid 0.5 iv. Patient refused to take Dilaudid as she does not have a dinkey driver to take her home. CT of the head did not show any acute findings -- Unprovoked less than 1 minute episodes of chest pain. EKG was unremarkable. Troponin was negative. chest x-ray was unremarkable Vital Signs Vital signs: Vital Signs Temperature 36.7 C 04/30/25 07:35 Pulse Rate 89 04/30/25 07:35 Respiratory Rate 16 04/30/25 07:35 Blood Pressure 180/100 H 04/30/25 07:35 Pulse Oximetry 98 04/30/25 07:35 Oxygen Delivery Room Air 04/30/25 07:35 Temperature 36.7 C 04/30/25 07:35 Pulse Rate 89 04/30/25 08:47 Respiratory Rate 18 04/30/25 08:47 Blood Pressure 160/83 H 04/30/25 08:47 Pulse Oximetry 97 04/30/25 08:47 Oxygen Delivery Room Air 04/30/25 07:35 [facility] Narrative Medical decision making narrative: abdominal pain-- gastritis / GERD chest pain Differential Diagnosis Differential Diagnosis: CAD, bronchitis Medical Records I have reviewed the following patient records and this information was taken into consideration when formulating the assessment and plan.: previous labs Lab Data [facility] Lab Attestation statement: I personally reviewed the patient's lab results. 04/30/25 08:00 04/30/25 08:00 Labs: Lab Results 04/30/25 Range/Units 08:00 WBC 11.8 H (4.8-10.8) K/mm3 RBC 4.25 (4.20-5.40) M/mm3 Hgb 12.8 (12.0-15.0) g/dL Hct 38.5 (35.0-49.0) % MCV 90.6 (78.0-102.0) fL MCH 30.1 (27.0-31.0) pg MCHC 33.2 (32-36) g/dL RDW 14.3 (11.6-14.4) % Plt Count 305 (150-420) K/mm3 MPV 11.0 (9.2-11.8) fl Immature Gran % (Auto) 0.3 H (0.0-0.0) % Neut % (Auto) 70.8 H (50.0-70.0) % Lymph % (Auto) 23.1 (18.0-42.0) % [place] % (Auto) 4.8 (2.0-11.0) % Eos % (Auto) 0.5 L (1.0-6.0) % Baso % (Auto) 0.5 (0.0-1.0) % Lymph # (Auto) 2.72 (1.10-4.50) K/mm3 [place] # (Auto) 0.57 (0.10-0.90) K/mm3 Eos # (Auto) 0.06 (0.02-0.50) K/mm3 Baso # (Auto) 0.06 (0.00-0.10) K/mm3 Abs Immat Gran (auto) 0.04 H (0.00-0.00) K/mm3 Absolute Neuts (auto) 8.34 H (1.70-7.20) K/mm3 Absolute Nucleated RBC 0.00 (0.00-0.00) K/mm3 Nucleated RBC % 0.0 (0-0.0) % PT 10.6 (9.50-12.1) Seconds INR 1.0 Sodium 138 (137-145) mmol/L Potassium 3.7 (3.4-5.0) mmol/L Chloride 101 (98-107) mmol/L Carbon Dioxide 26 (22-30) mmol/L Anion Gap 11 (4-12) mmol/L BUN 14 D (7-17) mg/dL Creatinine 0.93 (0.7-1.0) mg/dL Estim Creat Clear Calc Not Reportable Estimated GFR > 60 (59 - ) Glucose 122 H (65-110) mg/dL Calculated Osmolality 287 (285-295) mOsm/kg Lactic Acid 0.9 (0.7-2.0) mmol/L Calcium 10.5 H (8.4-10.2) mg/dL Magnesium 1.9 (1.6-2.3) mg/dL Total Bilirubin 0.6 (0.2-1.3) mg/dL Direct Bilirubin < 0.1 (0-0.3) mg/dL AST 22 (14-36) U/L ALT 12 (6-35) U/L Alkaline Phosphatase 57 (38-126) U/L Total Creatine Kinase 55 (30-135) U/L Troponin I < 0.012 (0.000-0.034) ng/mL Total Protein 8.2 (6.3-8.2) g/dL Albumin 4.8 (3.5-5.1) g/dL Lipase 91 (23-300) U/L Urine Color Light yellow (Yellow) Urine Appearance Clear (Clear) Urine pH 6.0 (5.0-8.0) Ur Specific [place] <= 1.005 L (1.010-1.020) Urine Protein Negative (Negative) Urine Glucose (UA) Negative (Negative) Urine Ketones Negative (Negative) Ur Blood (Man) 2+ H (Negative) Urine Nitrate Negative (Negative) Urine Bilirubin Negative (Negative) Urine Urobilinogen 0.2 (0.2-1.0) mg/dL Leukocyte Esterase Rfl Negative (Negative) CAMILLE/UL Urine RBC 0-2 (0-2) /hpf Urine WBC None seen (0-3) /hpf Ur Squamous Epith Cells Few (Few) /hpf Urine Bacteria Rare (None) /hpf Imaging Data Radiologist's impression: ITS Impressions Abdomen/Pelvis CT 04/30/25 09:08 IMPRESSION: 1. No specific etiology for the patient's symptoms. Chest X-Ray 04/30/25 09:18 IMPRESSION: 1. No acute cardiopulmonary findings given portable technique. ECG Data EKG #1: ECG completion date: 04/30/25 ECG completion time: 07:40 Interpretation: normal sinus rhythm. Left axis deviation. No ST elevation. Normal intervals. Discharge Plan Discharge Clinical Impression: Abdominal pain Qualifiers: Abdominal location: epigastric Qualified Code(s): R10.13 - Epigastric pain Gastritis Qualifiers: Gastritis type: unspecified gastritis Chronicity: acute Gastritis bleeding: without bleeding Qualified Code(s): K29.00 - Acute gastritis without bleeding Chest pain Qualifiers: Chest pain type: unspecified Qualified Code(s): R07.9 - Chest pain, unspecified Patient Disposition: Home Condition: Stable Instructions: Antibiotic Form, Gastritis (ED), Abdominal Pain (ED) Patient Language: Turkish Prescriptions: New ondansetron 4 mg tablet,disintegrating 4 mg PO Q8H PRN (Reason: nausea and vomiting) Qty: 10 0RF famotidine 40 mg tablet 40 mg PO DAILY Qty: 30 0RF No Action triamcinolone acetonide 0.1 % ointment 1 applic topical BID Excedrin Extra Strength 250-250-65 mg tablet 1 tablet PO Q4-6H PRN hydrocodone-acetaminophen 10-325 mg Tablet 1 tablet PO Q4H PRN (Reason: Pain) baclofen 20 mg tablet 20 mg PO BID gabapentin 300 mg capsule 300 mg PO HS quetiapine 300 mg tablet 200 mg PO HS Follow-up/Referrals: UNKNOWN,DOCTOR [Non-Staff] Time of Disposition: 09:33
--- OUTSIDE RECORDS SUMMARY | 2025-04-30 07:34 | XMS_ITS | Clinical Summary ---
Author Organization [facility] Address [address] [place] [address] Care Team Providers Care Live Hanger Name Role Phone Mal Babb MD Primary Care Provider [phone] Allergies Active Allergy Reactions Criticality Noted Date Comments Cat Dander Unknown 03/06/2015 Dicyclomine Anaphylaxis High 02/14/2020 Molds & Smuts Unknown 03/06/2015 Sumatriptan Other (see comment) Low 07/17/2017 Vascular reaction Tree Extract Unknown 03/06/2015 Medications baclofen (LIORESAL) 20 MG tablet Take 1 tablet (20 mg total) by mouth 3 (three) times daily. Active citalopram (CELEXA) 40 MG tablet Take 1 tablet (40 mg total) by mouth daily. 5 Active clindamycin (CLEOCIN T) 1 % lotion APPLY SPARINGLY AND MASSAGE TOPICALLY TO THE AFFECTED AREA 1 TO 2 TIMES DAILY 5 Active diclofenac EC (VOLTAREN) 75 MG tablet Take 1 tablet (75 mg total) by mouth 2 (two) times daily. 5 Active DULoxetine (CYMBALTA) 60 MG capsule Take 1 capsule (60 mg total) by mouth daily. 5 Active vitamin D2, ergocalciferol, (DRISDOL) 1.25 mg capsule TAKE 1 CAPSULE BY MOUTH WEEKLY FOR 12 WEEKS 5 Active gabapentin (NEURONTIN) 300 MG capsule Take 3 capsules (900 mg total) by mouth nightly at bedtime. Active levoFLOXacin (LEVAQUIN) 500 MG tablet Take 1 tablet (500 mg total) by mouth daily. 4 Active lisinopril (PRINIVIL) 10 MG tablet Take 1 tablet (10 mg total) by mouth daily. 5 Active QUEtiapine (SEROQUEL) 100 MG tablet TAKE 1 TABLET BY MOUTH EVERY NIGHT AT BEDTIME WITH 400 MG TABLET FOR TOTAL OF 500 MG 5 Active QUEtiapine (SEROQUEL) 400 MG tablet TAKE 1 TABLET BY MOUTH AT BEDTIME WITH 100MG TABLET 5 Active spironolactone (ALDACTONE) 50 MG tablet Take 2 tablets (100 mg total) by mouth daily. 5 Active HYDROcodone-karime taminophen (NORCO) 10-325 MG tablet take 1 tablet by mouth every 4 hours 5 Active Active Problems Problem Noted Date Diagnosed Date Bilateral low back pain without sciatica 020 Lumbosacral radiculopathy at L3 02/14/2020 Pain in thoracic spine 02/14/2020 Iron deficiency anemia 06/12/2014 Deviated nasal septum 10/29/2011 Hypertrophy of nasal turbinates 10/29/2011 Otalgia 08/15/2011 Other specified disorders of Eustachian tube, unspecified ear 08/15/2011 Resolved Problems Problem Noted Date Diagnosed Date Resolved Date Postoperative examination 03/21/2015 Encounter for preventive health examination 03/05/2015 10/24/2024 Encounters Date Type Department Care Team Description 04/12/2025 Telephone [facility] [address] [place] [address] Spencer Jorge MD Orders (Called pt on 04/12/2025 regarding MRI orders for the second time. No answer again, Left a second voicemail.) 04/12/2025 Telephone [facility] [address] [place] [address] Spencer Jorge MD Orders (Called pt on 04/12/2025 regarding MRI orders. No answer, LVM. ) 04/11/2025 Telephone [facility] [address] [place] [address] Spencer Jorge MD Follow Up Call from Last 3 Months Immunizations Immunization Administration Dates Next Due Influenza (Generic) 02/18/2024 Tdap (Generic) 05/06/2024 Social History Tobacco Use Types Packs/Day Years Used Date Smoking Tobacco: Every Day Cigarettes Smokeless Tobacco: Never Tobacco Cessation:Ready to Q uit: No; Counseling Given: Yes Alcohol Use Standard Drinks/Week Comments Not Currently 0 (1 standard drink = 0.6 oz pur e alcohol) PHQ-2 Answer Date Recorded Patient Health Questionnaire-2 Score 0 10/20/2024 Comments Unknown Sex and Gender Information Value Date Recorded Sex Assigned at Not on file Legal Sex Female 10:56 PM CDT Gender Identity Not on file Sexual Orientation Not on file Last Filed Vital Signs Vital Sign Reading Time Taken Comments Blood Pressure 174/93 10/20/2024 11:03 AM CDT Pulse 64 10/20/2024 11:03 AM CDT Temperature 36.8 C (98.2 F) 10/20/2024 11:03 AM CDT Respiratory Rate - - Oxygen Saturation 100% 10/20/2024 11:03 AM CDT Inhaled Oxygen Concentration - - Weight 80.7 kg (178 lb) 10/20/2024 11:03 AM CDT Height 165.1 cm (5' 5) 10/20/2024 11:03 AM CDT Body Mass Index 29.62 10/20/2024 11:03 AM CDT Plan of Treatment Health Maintenance Due Date Last Done Comments Cervical Cancer Screening Pa p Smear (Age 30 to 64) Every 3 Years 1976 Colorectal Cancer Screening Colonoscopy (10 Years) 1976 Annual Physical 11/17/1979 Hepatitis C 1994 Hepatitis B Vaccines (1 of 3 - 19+ 3-dose series) 11/17/1995 Pneumococcal Vaccine: Pediat rics (0 to 5 Years) and At-Risk Patients (6 to 49 Years) (1 of 2 - PCV) 11/17/1995 Cervical Cancer Screening Pa p with HPV Testing (Age 30 to 64) Every 5 Years 2006 Cervical Cancer Screening with HPV 2006 Mammogram Screening 2016 COVID-19 Vaccine (2024-2 6 season) 2025 Influenza Adult (#1) 2025 02/18/2024 DTaP, Tdap and Td Vaccines ( 2 - Td or Tdap) 05/06/2034 05/06/2024 PHQ-2 (Physician [place]) Completed 10/20/2024 Hepatitis A Vaccines Aged Out No long er eligible based on patient's age to complete this topic Meningococcal B Vaccine Aged Out No l onger eligible based on patient's age to complete this topic Meningococcal Vaccine Aged Out No rox papito eligible based on patient's age to complete this topic RSV Immunizations Under 20 Months Aged Out No longer eligible based on patient's age to complete this topic Insurance Care Teams Live Hanger Relationship Specialty [place] [address] [address] [facility] [address] [place] [address] PCP - General DIRECTOR DIGITAL CATALOGUE 06/25/20
--- OUTSIDE RECORDS SUMMARY | 2025-04-30 07:34 | XMS_ITS | Clinical Summary ---
Author Organization [facility] Address [address] [place] [address] Care Team Providers Care Publishing Agent Name Role Phone Mal Babb MD Primary Care Provider Allergies No known active allergies Medications medroxyPROGESTERon e (PROVERA) 5 mg tablet 0 04/19/2014 Active citalopram (CELEXA) 40 mg tablet 9 06/08/2014 Active NIFEdipine (PROCARDIA XL) 90 mg Extended Release 24 hour tablet 2 06/08/2014 Active ranitidine (ZANTAC) 150 mg tablet 7 06/08/2014 Active fluticasone (FLONASE) 50 mcg/spray [place], Suspension 0 05/20/2014 Active Active Problems Problem [...] on file Legal Sex Female 6:08 AM FORGING OPERATOR Gender Identity Not on file Sexual Orientation Not on file Last Filed Vital Signs Vital Sign Reading Time Taken Comments Blood Pressure 138/90 06/21/2014 11:49 AM FORGING OPERATOR Pulse 60 06/21/2014 11:49 AM FORGING OPERATOR Temperature 36.7 C (98.1 F) 06/21/2014 11:49 AM FORGING OPERATOR Respiratory Rate 20 06/21/2014 11:49 AM FORGING OPERATOR Oxygen Saturation - - Inhaled Oxygen Concentration - - Weight 80.8 kg (178 lb 3.2 oz) 06/21/2014 11:49 AM FORGING OPERATOR Height 165.1 cm (5' 5) 06/21/2014 11:49 AM FORGING OPERATOR Body Mass Index 29.65 06/21/2014 11:49 AM FORGING OPERATOR Plan of Treatment Health Maintenance Due Date [...] Q 5 years 2021 INFLUENZA VACCINE (#1) 2024 Insurance BCBS BLUE ACCESS/TRUE BLUE PPO Care Teams Publishing Agent Relationship Specialty [place] [address] [facility] [address] [place] [address] PCP - General Internal Medicine 06/09/17
--- OUTSIDE RECORDS SUMMARY | 2025-04-30 07:34 | XMS_ITS | Clinical Summary ---
Author Organization [facility] [employer] Address [address] [place] [place] [address] Care Team Providers Care On Site Manager Name Role Phone Kuldeep Stanley MD Primary Care Provider [phone] Source Comments [facility],non-owned Affiliates and Associated Physician Practices is amultiple site organization consisting of ambulatory clinics and hospital sitesin [place], [place], [place] and [place]. This disclosure is being madepursuant to the Care Everywhere program and may not contain all information available regarding this patient. Last updated 18.[facility] Allergies Active Allergy Reactions Criticality Noted Date [...] on file Legal Sex Female 7:00 PM TIRE FABRIC IMPREGNATING RANGE TENDER Gender Identity Not on file Sexual Orientation Not on file Last Filed Vital Signs Vital Sign Reading Time Taken Comments Blood Pressure 102/78 07/17/2017 2:53 PM TIRE FABRIC IMPREGNATING RANGE TENDER Pulse 69 07/17/2017 2:53 PM TIRE FABRIC IMPREGNATING RANGE TENDER Temperature 36.8 C (98.2 F) 07/17/2017 2:53 PM TIRE FABRIC IMPREGNATING RANGE TENDER Respiratory Rate 16 07/17/2017 2:53 PM TIRE FABRIC IMPREGNATING RANGE TENDER Oxygen Saturation 98% 07/17/2017 2:53 PM TIRE FABRIC IMPREGNATING RANGE TENDER Inhaled Oxygen Concentration - - Weight 98.9 kg (218 lb) 07/17/2017 2:53 PM TIRE FABRIC IMPREGNATING RANGE TENDER Height 165.1 cm (5' 5) 07/17/2017 2:53 PM TIRE FABRIC IMPREGNATING RANGE TENDER Body Mass Index 36.28 07/17/2017 2:53 PM TIRE FABRIC IMPREGNATING RANGE TENDER Plan of Treatment Health Maintenance Due Date [...] VACCINE (1 of 2 - PCV) 11/17/1995 PAP SMEAR 1997 SCREENING FOR DIABETES 07/17/2017 DEPRESSION SCREENING 05/18/2024 COVID-19 VACCINE (1 - 2024-2 6 season) 2025 INFLUENZA VACCINE (#1) 2025 02/18/2024 ZOSTER VACCINE (1 of 2) 2026 HIB [...] age to complete this topic [place] [place] [address] Care Teams On Site Manager Relationship Specialty Start Date End Date Kuldeep Stanley MD [address] [place] [id number] PCP - General 03/26/19
--- OUTSIDE RECORDS SUMMARY | 2025-04-30 07:34 | XMS_ITS | Encounter Summary ---
Author Organization [facility] Address [facility] [place] [address] Care Team Providers Care Grain Unloader Machine Name Role Phone Mal Babb MD Primary Care Provider [phone] Encounter Details Date Type Department Care Team (Late st Contact Info) Description 10/23/2018 Abstract [facility] [address] [place] [id number] , Generic Conversion, Social History Tobacco Use Types Packs/Day Years Used Date Smoking Tobacco: Never Assessed Comments Unknown Sex and Gender Information Value Date Recorded Sex Assigned at Not on file Legal Sex Female 10:56 PM CDT Gender Identity Not on file Sexual Orientation Not on file documented as of this encounter Plan of Treatment Not on file documented as of this encounter Visit Diagnoses Not on filedocumented in this encounter Care Teams Grain Unloader Machine Relationship Specialty [place] [address] [facility] [address] [place] [address] PCP - General SAP BW BI DEVELOPER 06/25/20 documented as of this encounter
--- NOTE | 2025-04-30 07:35 | ECG_ITS ---
Test Date: 2025-04-30 07:40:10 Measurements Intervals [place] Rate: 88 P: 48 DC: 132 QRS: -22 QRSD: 94 T: 74 QT: 340 QTc: 412 Interpretive Statements SINUS RHYTHM DELAYED PRECORDIAL R/S TRANSITION BORDERLINE ST-T WAVE ABNORMALITY- HIGH LATERAL LEADS BASELINE ARTIFACT- I, II, III, AVR, AVL, AVF, V1, V3-V6 BORDERLINE ECG No previous ECG available for comparison Electronically Signed On 04-30-2025 09:33:42 DEVICE PROCESSING ENGINEER by Pierre Bean D.O.
[2025-04-30 08:05] LABS: Hematocrit 38.5 % (35.0-49.0); Hemoglobin 12.8 g/dL (12.0-15.0); Immature Granulocyte Percent A 0.3 % (0.0-0.0); Lymphocytes Absolute Auto 2.72 K/mm3 (1.10-4.50); Mean Corpuscular HGB Conc 33.2 g/dL (32-36); Mean Corpuscular Hemoglobin 30.1 pg (27.0-31.0); Mean Corpuscular Volume 90.6 fL (78.0-102.0); Nucleated Red Blood Cells Absolute Auto 0.00 K/mm3 (0.00-0.00); Nucleated Red Blood Cells Perc 0.0 % (0-0.0); Platelet Count Result 305 K/mm3 (150-420); Red Blood Count 4.25 M/mm3 (4.20-5.40); White Blood Count 11.8 K/mm3 (4.8-10.8)
[2025-04-30 08:07] LABS: Add Urine Microscopic? YES; Appearance Urine Clear (Clear); Glucose Urine UA Negative (Negative); Leukocyte Esterase Ur Negative LEU/UL (Negative); Nitrate Urine Negative (Negative); Specific Grav Ur <= 1.005 (1.010-1.020)
--- OUTSIDE RECORDS SUMMARY | 2025-04-30 08:13 | XMS_ITS | Encounter Summary ---
Author Organization [facility] Address [facility] [place] [address] Care Team Providers Care Customs Verifier Name Role Phone Mal Babb MD Primary Care Provider [phone] Encounter Details Date Type Department Care Team (Late st Contact Info) Description 10/23/2018 Abstract SFL CONVERSION [address] [place] [id number] , Generic Conversion, Social History Tobacco Use [...] on filedocumented in this encounter Care Teams Customs Verifier Relationship Specialty [place] [address] [facility] [address] [place] [address] PCP - General LOG GRADER 06/25/20 documented as of this encounter
--- OUTSIDE RECORDS SUMMARY | 2025-04-30 08:13 | XMS_ITS | Clinical Summary ---
Author Organization [facility] Address [address] [place] [address] Care Team Providers Care Estimator Jewelry Name Role Phone Mal Babb MD Primary Care Provider [phone] Allergies Active Allergy Reactions Criticality Noted Date [...] Type Department Care Team Description 04/12/2025 Telephone [facility] [address] [place] [address] Spencer Jorge MD Orders (Called pt on 04/12/2025 regarding MRI orders for the second time. No answer again, Left a second voicemail.) 04/12/2025 Telephone [facility] [address] [place] [address] Spencer Jorge MD Orders (Called pt on 04/12/2025 regarding MRI orders. No answer, LVM. ) 04/11/2025 Telephone [facility] [address] [place] [address] Spencer Jorge MD Follow Up [...] Td or Tdap) 05/06/2034 05/06/2024 PHQ-2 (Physician [place]) Completed 10/20/2024 Hepatitis A Vaccines Aged Out [...] to complete this topic Insurance Care Teams Estimator Jewelry Relationship Specialty [place] [address] [address] [facility] [address] [place] [address] PCP - General FACING MACHINE OPERATOR 06/25/20
--- OUTSIDE RECORDS SUMMARY | 2025-04-30 08:13 | XMS_ITS | Clinical Summary ---
Author Organization [facility] Address [address] [place] [address] Care Team Providers Care Research Study Assistant Name Role Phone Mal Babb MD Primary Care Provider [phone] Allergies No known active allergies Medications medroxyPROGESTERon e (PROVERA) 5 mg tablet 0 04/19/2014 Active citalopram (CELEXA) 40 mg tablet 9 06/08/2014 Active NIFEdipine (PROCARDIA XL) 90 mg Extended Release 24 hour tablet 2 06/08/2014 Active ranitidine (ZANTAC) 150 mg tablet 7 06/08/2014 Active fluticasone (FLONASE) 50 mcg/spray [place], Suspension 0 05/20/2014 Active Active Problems Problem [...] on file Legal Sex Female 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 Gender Identity Not on file Sexual Orientation Not on file Last Filed Vital Signs Vital Sign Reading Time Taken Comments Blood Pressure 138/90 06/21/2014 11:49 AM GANG WORKER Pulse 60 06/21/2014 11:49 AM GANG WORKER Temperature 36.7 C (98.1 F) 06/21/2014 11:49 AM GANG WORKER Respiratory Rate 20 06/21/2014 11:49 AM GANG WORKER Oxygen Saturation - - Inhaled Oxygen Concentration - - Weight 80.8 kg (178 lb 3.2 oz) 06/21/2014 11:49 AM GANG WORKER Height 165.1 cm (5' 5) 06/21/2014 11:49 AM GANG WORKER Body Mass Index 29.65 06/21/2014 11:49 AM GANG WORKER Plan of Treatment Health Maintenance Due Date [...] BCBS BLUE ACCESS/TRUE BLUE PPO Care Teams Research Study Assistant Relationship Specialty [place] [address] [facility] [address] [place] [address] PCP - General Internal Medicine 06/09/17
--- OUTSIDE RECORDS SUMMARY | 2025-04-30 08:13 | XMS_ITS | Clinical Summary ---
Author Organization [facility] [employer] Address [address] [facility] [place] [address] Care Team Providers Care Urologist Md Name Role Phone Kuldeep Stanley MD Primary Care Provider [phone] Source Comments [facility],non-owned Affiliates and Associated Physician Practices is amultiple site organization consisting of ambulatory clinics and hospital sitesin [place], [place] and [place]. This disclosure is being madepursuant to the Care Everywhere program and may not contain all information available regarding this patient. 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 Gender Identity Not on file Sexual Orientation Not on file Last Filed Vital Signs Vital Sign Reading Time Taken Comments Blood Pressure 102/78 07/17/2017 2:53 PM TRADEMARK AFFIXER Pulse 69 07/17/2017 2:53 PM TRADEMARK AFFIXER Temperature 36.8 C (98.2 F) 07/17/2017 2:53 PM TRADEMARK AFFIXER Respiratory Rate 16 07/17/2017 2:53 PM TRADEMARK AFFIXER Oxygen Saturation 98% 07/17/2017 2:53 PM TRADEMARK AFFIXER Inhaled Oxygen Concentration - - Weight 98.9 kg (218 lb) 07/17/2017 2:53 PM TRADEMARK AFFIXER Height 165.1 cm (5' 5) 07/17/2017 2:53 PM TRADEMARK AFFIXER Body Mass Index 36.28 07/17/2017 2:53 PM TRADEMARK AFFIXER Plan of Treatment Health Maintenance Due Date [...] age to complete this topic Insurance [place] [address] [address] Care Teams Urologist Md Relationship Specialty Start Date End Date Kuldeep Stanley MD [address] [place] [id number] PCP - General 03/26/19
[2025-04-30 08:16] LABS: Alanine Aminotransferase 12 U/L (6-35); Albumin Level 4.8 g/dL (3.5-5.1); Alkaline Phosphatase 57 U/L (38-126); Anion Gap 11 mmol/L (4-12); Aspartate Amino Transferase 22 U/L (14-36); Bilirubin,Total 0.6 mg/dL (0.2-1.3); Blood Urea Nitrogen 14 mg/dL (7-17); Calcium 10.5 mg/dL (8.4-10.2); Carbon Dioxide 26 mmol/L (22-30); Chloride 101 mmol/L (98-107); Creatine Kinase 55 U/L (30-135); Estimated Glomerular Filt Rate > 60; Glucose 122 mg/dL (65-110); Lipase 91 U/L (23-300); Magnesium 1.9 mg/dL (1.6-2.3); Osmolality Calculated 287 mOsm/kg (285-295); Potassium 3.7 mmol/L (3.4-5.0); Sodium 138 mmol/L (137-145); Total Protein 8.2 g/dL (6.3-8.2)
[2025-04-30 08:18] LABS: INR 1.0; Prothrombin Time 10.6 Seconds (9.50-12.1)
[2025-04-30] MEDS: LACTATED RINGERS 1,000 ML 100 ML IV CONT (08:26)
[2025-04-30] MEDS: PROCHLORPERAZINE EDISYLATE 10 MG/2 ML VIAL IV PUSH (08:26)
[2025-04-30 08:28] LABS: Troponin I < 0.012 ng/mL (0.000-0.034)
== END 2025-04-30 09:38 | disposition home or self-care (01) ==
PROVIDERS: Emergency Provider Internal Medicine Critical Care Medicine
DX: K29.00 Acute gastritis without bleeding (principal); R10.13 Epigastric pain; E78.5 Hyperlipidemia, unspecified; J43.9 Emphysema, unspecified; F17.210 Nicotine dependence, cigarettes, uncomplicated; Z90.49 Acquired absence of other specified parts of digestive tract
CPT/HCPCS: 36415; 71045; 74177; 80048; 80076; 81001; 82550; 83605; 83690; 83735; 84484; 85025; 85610; 93005; 96361; 96374; 99284; J0780; J7120; Q9967